=== PATIENT | female | born 1930 | race Caucasian/White ===

== ENCOUNTER 2017-03-08 21:20 | Emergency (ER) | payer MEDICARE, OTHER ==
[~2017-03-08] VITALS: Ht 157.5 cm; Wt 46.7 kg
[~2017-03-08 21:20] MED LIST: ADVAIR 250-501 EACH INH; ALENDRONATE SOD70 MG PO; ALLOPURINOL100 MG PO; ASCORBIC ACID250 MG PO; ASPIRIN EC325 MG PO; ASPIRIN EC81 MG PO; ATENOLOL25 MG; ATENOLOL50 MG PO; ATORVASTATIN CA20 MG PO; C-10001000 MG PO; CARVEDILOL3.125 MG PO; CITALOPRAM HBR10 MG PO; COUMADIN3 MG PO; DEMADEX10 MG PO; DEMADEX20 MG PO; DIGOXIN125 MCG PO; DILTIAZEM 24HR180 MG PO; DILTIAZEM 24HR240 MG PO; DILTIAZEM 24HR360 MG PO; DILTIAZEM ER420 M1 PO; DILTIAZEM ER420 MG PO; DISALCID500 MG PO; ELIQUIS2.5 MG PO; FIBER CHOICE C1.5 GM PO; FISH OIL500 MG PO; GLUCOS-CHOND 51 EACH PO; IMODIUM A-D2 MG PO; KEFLEX500 MG PO; KLOR-CON 1010 MEQ PO; LASIX20 MG PO; LASIX40 MG PO; MEDROL4 M1 PO; NORCO 5-325 TA1 EACH PO; PRILOSEC20 MG PO; PROCTOSOL-HC30 GM PR; PROVENTIL HFA6.7 GM INH; PYRIDIUM200 MG PO; SENNA8.6 MG PO; SYNTHROID75 MCG PO; TENORMIN100 MG PO; TIZANIDINE HCL2 M1 PO; TYLENOL325 MG PO; VITAMIN D5000 UNIT PO; ZITHROMAX250 MG PO; ZOCOR20 MG PO
--- OUTSIDE RECORDS SUMMARY | 2017-03-08 23:29 | XMS ---
Demographics + + + | Address | [address] | | | [place] [address] | + + + | Preferred Language | Unknown | + + + | Marital Status | Unknown | + + + | Synagogue Affiliation | Unknown | + + + | Race | Unknown | + + + | Ethnic Group | Unknown | + + + Author + + + | Author | [facility] | + + + | Organization | [facility] | + + + | Address | [address] | | | [place] [address] | + + + | Phone | | + + + Care Team Providers + + + + | Care Insurance Professional Name | Role | Phone | + + + + Unavailable | Unavailable | + + + + PROBLEMS +---------+ + + +--------+ + + | Type | Condition | ICD9-CM | [id number] | Onset | Condition | SNOMED | | | | Code | Code | Dates | Status | Code | +---------+ + + +--------+ + + | Problem | Chronic | | I48.2 | | Active | [id number] | | | atrial | | | | | | | | fibrillati | | | | | | | | on | | | | | | +---------+ + + +--------+ + + | 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 | | | Active | 421171511 | | | hypothyroi | | | | | | | | dism | | | | | | +---------+ + + +--------+ + + | Problem | Chronic | | J44.1 | | Active | 648149006 | | | obstructiv | | | | | | | | e | | | | | | | | pulmonary | | | | | | | | disease | | | | | | | | with | | | | | | | | (acute) | | | | | | | | exacerbati | | | | | | | | on | | | | | | +---------+ + + +--------+ + + | Problem | 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 | | Active | 0615355 | | | emphysema | | | | | | +---------+ + + +--------+ + + | Problem | Gastroesop | K21.9 | | | Active | 284411167 | | | hageal | | | | | | | | reflux | | | | | | | | disease | | | | | | | | without | | | | | | | | esophagiti | | | | | | | | s | | | | | | +---------+ + + +--------+ + + | Problem | Chronic | I50.22 | | | Active | 183726007 | | | systolic | | | | | | | | congestive | | | | | | | | heart | | | | | | | | failure | | | | | | +---------+ + + +--------+ + + | Problem | Osteoporos | | M81.0 | | Active | 62670910 | | | is | | | | | | +---------+ + + +--------+ + + | Problem | Hypertensi | I11.9 | | | Active | 30210732 | | | ve | | | | | | | | arterioscl | | | | | | | | erotic | | | | | | | | cardiovasc | | | | | | | | ular | | | | | | | | disease | | | | | | +---------+ + + +--------+ + + | Problem | CKD | N18.3 | | | Active | 251345984 | | | (chronic | | | | | | | | kidney | | | | | | | | disease), | | | | | | | | stage 3 | | | | | | | | (moderate) | | | | | | +---------+ + + +--------+ + + ALLERGIES Unknown Allergies SOCIAL HISTORY No smoking Hx information available PLAN OF CARE VITAL SIGNS MEDICATIONS Unknown Medications RESULTS No Results PROCEDURES No Known procedures IMMUNIZATIONS No Known Immunizations"
--- OUTSIDE RECORDS SUMMARY | 2017-03-08 23:29 | XMS ---
Demographics + + + | Address | [address] | | | [place] [address] | + + + | Preferred Language | Unknown | + + + | Marital Status | Unknown | + + + | Alevism Affiliation | Unknown | + + + | Race | Unknown | + + + | Ethnic Group | Unknown | + + + Author + + + | Author | [facility] | + + + | Organization | [facility] | + + + | Address | [address] | | | [place] [address] | + + + | Phone | | + + + Care Team Providers + + + + | Care Marine Photographer Name | Role | Phone | + + + + Unavailable | Unavailable | + + + + PROBLEMS +---------+ + + +--------+ + + | Type | Condition | ICD9-CM | [id number] | Onset | Condition | SNOMED | | | | Code | Code | Dates | Status | Code | +---------+ + + +--------+ + + | Problem | Chronic | | I48.2 | | Active | [id number] | | | atrial | | | | | | | | fibrillati | | | | | | | | on | | | | | | +---------+ + + +--------+ + + | 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 | | | Active | 442877756 | | | hypothyroi | | | | | | | | dism | | | | | | +---------+ + + +--------+ + + | Problem | Chronic | | J44.1 | | Active | 244563016 | | | obstructiv | | | [...] | | J43.1 | | Active | 5934175 | | | emphysema | | | | | | +---------+ + + +--------+ + + | Problem | Gastroesop | K21.9 | | | Active | 670487993 | | | hageal | | | [...] | I50.22 | | | Active | 993382812 | | | systolic | | | | | | | | congestive | | | | | | | | heart | | | | | | | | failure | | | | | | +---------+ + + +--------+ + + | Problem | Osteoporos | | M81.0 | | Active | 07159288 | | | is | | | | | | +---------+ + + +--------+ + + | Problem | Hypertensi | I11.9 | | | Active | 70169391 | | | ve | | | [...] | N18.3 | | | Active | 403227374 | | | (chronic | | | [...]
--- OUTSIDE RECORDS SUMMARY | 2017-03-08 23:29 | XMS ---
Demographics + + + | Address | [address] | | | [place] [address] | + + + | Preferred Language | Unknown | + + + | Marital Status | Unknown | + + + | Oriental Orthodox Affiliation | Unknown | + + + | Race | Unknown | + + + | Ethnic Group | Unknown | + + + Author + + + | Author | [facility] | + + + | Organization | [facility] | + + + | Address | [address] | | | [place] [address] | + + + | Phone | | + + + Care Team Providers + + + + | Care Corporate Aircraft Mechanic Name | Role | Phone | + + + + Unavailable | Unavailable | + + + + PROBLEMS +---------+ + + +--------+ + + | Type | Condition | ICD9-CM | [id number] | Onset | Condition | SNOMED | | | | Code | Code | Dates | Status | Code | +---------+ + + +--------+ + + | Problem | Chronic | | I48.2 | | Active | [id number] | | | atrial | | | | | | | | fibrillati | | | | | | | | on | | | | | | +---------+ + + +--------+ + + | 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 | | | Active | 578599020 | | | hypothyroi | | | | | | | | dism | | | | | | +---------+ + + +--------+ + + | Problem | Chronic | | J44.1 | | Active | 249279229 | | | obstructiv | | | [...] | | J43.1 | | Active | 0350792 | | | emphysema | | | | | | +---------+ + + +--------+ + + | Problem | Gastroesop | K21.9 | | | Active | 796523902 | | | hageal | | | [...] | I50.22 | | | Active | 162280434 | | | systolic | | | | | | | | congestive | | | | | | | | heart | | | | | | | | failure | | | | | | +---------+ + + +--------+ + + | Problem | Osteoporos | | M81.0 | | Active | 65860059 | | | is | | | | | | +---------+ + + +--------+ + + | Problem | Hypertensi | I11.9 | | | Active | 00461953 | | | ve | | | [...] | N18.3 | | | Active | 339183130 | | | (chronic | | | [...]
--- OUTSIDE RECORDS SUMMARY | 2017-03-08 23:29 | XMS ---
Demographics + + + | Address | [address] | | | [place] [address] | + + + | Preferred Language | Unknown | + + + | Marital Status | Unknown | + + + | Faith Affiliation | Unknown | + + + | Race | Unknown | + + + | Ethnic Group | Unknown | + + + Author + + + | Author | [facility] | + + + | Organization | [facility] | + + + | Address | [address] | | | [place] [address] | + + + | Phone | | + + + Care Team Providers + + + + | Care Street Commissioner Name | Role | Phone | + + + + Unavailable | Unavailable | + + + + PROBLEMS +---------+ + + +--------+ + + | Type | Condition | ICD9-CM | [id number] | Onset | Condition | SNOMED | | | | Code | Code | Dates | Status | Code | +---------+ + + +--------+ + + | Problem | Chronic | | I48.2 | | Active | 828032783 | | | atrial | | | | | | | | fibrillati | | | | | | | | on | | | | | | +---------+ + + +--------+ + + | 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 | | | Active | 077238717 | | | hypothyroi | | | | | | | | dism | | | | | | +---------+ + + +--------+ + + | Problem | Chronic | | J44.1 | | Active | 916652281 | | | obstructiv | | | [...] | | J43.1 | | Active | 6140337 | | | emphysema | | | | | | +---------+ + + +--------+ + + | Problem | Gastroesop | K21.9 | | | Active | 466501345 | | | hageal | | | [...] | I50.22 | | | Active | 284925044 | | | systolic | | | | | | | | congestive | | | | | | | | heart | | | | | | | | failure | | | | | | +---------+ + + +--------+ + + | Problem | Osteoporos | | M81.0 | | Active | 90253997 | | | is | | | | | | +---------+ + + +--------+ + + | Problem | Hypertensi | I11.9 | | | Active | 78189078 | | | ve | | | [...] | N18.3 | | | Active | 945783780 | | | (chronic | | | [...]
--- OUTSIDE RECORDS SUMMARY | 2017-03-08 23:29 | XMS ---
Demographics + + + | Address | [address] | | | [place] [address] | + + + | Preferred Language | Unknown | + + + | Marital Status | Unknown | + + + | Episcopal Affiliation | Unknown | + + + | Race | Unknown | + + + | Ethnic Group | Unknown | + + + Author + + + | Author | [facility] | + + + | Organization | [facility] | + + + | Address | [address] | | | [place] [address] | + + + | Phone | | + + + Care Team Providers + + + + | Care Last Putter Away Name | Role | Phone | + + + + Unavailable | Unavailable | + + + + PROBLEMS + + + + + + + + | Type | Condition | ICD9-CM | [id number] | Onset | Condition | SNOMED | | | | Code | Code | Dates | Status | Code | + + + + + + + + | Problem | Chronic | | I48.2 | | Active | 049223752 | | | atrial | | | | | | | | fibrillati | | | | | | | | on | | | | | | + + + + + + + + | 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 | | | Active | 758051986 | | | hypothyroi | | | | | | | | dism | | | | | | + + + + + + + + | Problem | Chronic | | J44.1 | | Active | 076194136 | | | obstructiv | | | [...] on | | | | | | + + + + + + + + | Assessment | COPD | | J44.1 | 28 December, | Active | 547175272 | | | exacerbati | | | 2016 | | | | | on | | | | | | + + + + + + + + | Problem | 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 | | Active | 2646593 | | | emphysema | | | | | | + + + + + + + + | Problem | Gastroesop | K21.9 | | | Active | 472548364 | | | hageal | | | | | | | | reflux | | | | | | | | disease | | | | | | | | without | | | | | | | | esophagiti | | | | | | | | s | | | | | | + + + + + + + + | Problem | Chronic | I50.22 | | | Active | 391630175 | | | systolic | | | | | | | | congestive | | | | | | | | heart | | | | | | | | failure | | | | | | + + + + + + + + | Problem | Osteoporos | | M81.0 | | Active | 92212420 | | | is | | | | | | + + + + + + + + | Problem | Hypertensi | I11.9 | | | Active | 31907288 | | | ve | | | | | | | | arterioscl | | | | | | | | erotic | | | | | | | | cardiovasc | | | | | | | | ular | | | | | | | | disease | | | | | | + + + + + + + + | Problem | CKD | N18.3 | | | Active | 237317325 | | | (chronic | | | | | | | | kidney | | | | | | | | disease), | | | | | | | | stage 3 | | | | | | | | (moderate) | | | | | | + + + + + + + + ALLERGIES + + + + +--------+ | Substance | Reaction | Event Type | Date | Status | + + + + +--------+ | Spiriva | dry mouth | Drug Allergy | December, | Active | | HandiHaler | | | | | + + + + +--------+ SOCIAL HISTORY No smoking Hx information available PLAN OF CARE + +---------+ | Activity | Details | + +---------+ +---+ | | +---+ + + + | Future/Pending Procedure | Nebulizer | + + + | | 1 Week,Reason: | + + + VITAL SIGNS + + + + | Height | 62 in | 2016-12-28 | + + + + | Weight | 105.4 lbs | 2016-12-28 | + + + + | BMI | 19.28 kg/m2 | 2016-12-28 | + + + + | Temperature | 97.7 degrees Fahrenheit | 2016-12-28 | + + + + | Heart Rate | 86 /min | 2016-12-28 | + + + + | Blood pressure systolic | 152 mm Hg | 2016-12-28 | + + + + | Blood pressure diastolic | 65 mm Hg | 2016-12-28 | + + + + MEDICATIONS + + + + + + + +--------+ | Medicati | Instruct | Dosage | Frequenc | Start | End Date | Duration | Status | | on | ions | | y | Date | | | | + + + + + + + +--------+ | Azithrom | Orally | 2 | 24h | | | | Active | | ycin 250 | Once a | tablets | | | | | | | MG | day | on the | | | | | | | | | first | | | | | | | | | day, | | | | | | | | | then 1 | | | | | | | | | tablet | | | | | | | | | daily | | | | | | | | | for 4 | | | | | | | | | days | | | | | | + + + + + + + +--------+ | PreserVi | | | | | | | Active | | reggie | | | | | | | | | AREDS 2 | | | | | | | | + + + + + + + +--------+ | Ipratrop | Inhalati | 3 ml | 4h | 08 December, | | 14 days | Active | | ium-Albu | on every | | | 2016 | | | | | terol | 4 hrs | | | | | | | | 0.5-2.5 | | | | | | | | | (3) | | | | | | | | | MG/3ML | | | | | | | | + + + + + + + +--------+ | Carvedil | Orally | 1 tablet | 12h | | | 30 | Active | | ol | Twice a | with | | | | | | | 3.125MG | day | food | | | | | | + + + + + + + +--------+ | Furosemi | Orally | 2 | 24h | | | | Active | | de 20 MG | Once a | tablets | | | | | | | | day | | | | | | | + + + + + + + +--------+ | Nebulize | topicall | as | | 08 December, | | 30 days | Active | | r - | y daily | directed | | 2016 | | | | | | Dx COPD | | | | | | | + + + + + + + +--------+ | Vitamin | Orally | 1 | 24h | | | | Active | | D3 1000 | Once a | capsule | | | | | | | UNIT | day | | | | | | | + + + + + + + +--------+ | Furosemi | Orally | 1 tablet | 12h | | | 30 days | Active | | de 40 MG | Twice a | | | | | | | | | day | | | | | | | + + + + + + + +--------+ | Potassiu | Orally | 1 | 12h | | | 30 | Active | | m | Twice a | capsule | | | | day(s) | | | Chloride | day | | | | | | | | ER 10 | | | | | | | | | MEQ | | | | | | | | + + + + + + + +--------+ | Diltiaze | PO Daily | 1 | 24h | | | | Active | | m CD 240 | | Capsule | | | | | | | MG | | | | | | | | + + + + + + + +--------+ | MethylPR | | | | | | | Active | | EDNISolo | | | | | | | | | ne 4 MG | | | | | | | | + + + + + + + +--------+ | Omeprazo | Orally | 1 | 12h | | | | Active | | le 20 mg | bid | capsule | | | | | | + + + + + + + +--------+ | Aspirin | Orally | 1 tablet | 24h | | | | Active | | Adult | Once a | | | | | | | | Low | day | | | | | | | | Strength | | | | | | | | | 81 MG | | | | | | | | + + + + + + + +--------+ | Ventolin | Inhalati | 2 puffs | 4h | | | | Active | | HFA 108 | on every | as | | | | | | | (90 | 4 hrs | needed | | | | | | | Base) | | | | | | | | | MCG/ACT | | | | | | | | + + + + + + + +--------+ | Levothyr | Orally | 1 tablet | 24h | | | 30 | Active | | oxine | Once a | every | | | | | | | Sodium | day | morning | | | | | | | 75MCG | | on an | | | | | | | | | empty | | | | | | | | | stomach | | | | | | + + + + + + + +--------+ | Advair | Inhalati | 1 puff | 12h | | | | Active | | Diskus | on Twice | | | | | | | | 250-50 | a day | | | | | | | | MCG/DOSE | | | | | | | | + + + + + + + +--------+ | Doxycycl | Orally | 1 | 12h | 08 December, | 18 December, | 10 days | Active | | ine | every 12 | capsule | | 2016 | 2016 | | | | Monohydr | hrs | | | | | | | | ate 100 | | | | | | | | | MG | | | | | | | | + + + + + + + +--------+ | Digoxin | Orally | 1 tablet | | | | 60 | Active | | 0.125MG | Every | | | | | | | | | other | | | | | | | | | day | | | | | | | + + + + + + + +--------+ | Vitamin | Orally | 1 tablet | 24h | 11 Bao, | | | Active | | C 1000 | Once a | | | 2014 | | | | | MG | day | | | | | | | + + + + + + + +--------+ | Alendron | Orally | 1 tablet | | | | 28 | Active | | ate | Once a | | | | | | | | Sodium | Week | | | | | | | | 70MG | | | | | | | | + + + + + + + +--------+ RESULTS No Results PROCEDURES + + + + + | Procedure | Date Ordered | Related Diagnosis | Body Site | + + + + + | NEBULIZER | December 28, 2016 | | | | TREATMENT, AEROSOL | | | | + + + + + | Office Visit, Est | December 28, 2016 | | | | Pt., Level 3 | | | | + + + + + IMMUNIZATIONS No Known Immunizations"
--- OUTSIDE RECORDS SUMMARY | 2017-03-08 23:30 | XMS ---
Demographics + + + | Address | [address] | | | [place] [address] | + + + | Preferred Language | Unknown | + + + | Marital Status | Unknown | + + + | Worship Affiliation | Unknown | + + + | Race | Unknown | + + + | Ethnic Group | Unknown | + + + Author + + + | Author | [facility] | + + + | Organization | [facility] | + + + | Address | [address] | | | [place] [address] | + + + | Phone | | + + + Care Team Providers + + + + | Care Central Melt Specialist Name | Role | Phone | + + + + Unavailable | Unavailable | + + + + PROBLEMS + + + + + + + + | Type | Condition | ICD9-CM | VHF57-[id number] | Onset | Condition | SNOMED | | | | Code | Code | Dates | Status | Code | + + + + + + + + | Problem | Chronic | | I48.2 | | Active | 449208454 | | | atrial | | | | | | | | fibrillati | | | | | | | | on | | | | | | + + + + + + + + | 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 | | | Active | 488652669 | | | hypothyroi | | | | | | | | dism | | | | | | + + + + + + + + | Problem | Chronic | | J44.1 | | Active | 468664108 | | | obstructiv | | | [...] Assessment | COPD | | J44.1 | 16 December, | Active | 730239285 | | | exacerbati | | | 2016 | | | | | on | | | | | | + + + + + + + + | Problem | 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 | | Active | 5497962 | | | emphysema | | | | | | + + + + + + + + | Problem | Gastroesop | K21.9 | | | Active | 251691619 | | | hageal | | | [...] | I50.22 | | | Active | 344611618 | | | systolic | | | | | | | | congestive | | | | | | | | heart | | | | | | | | failure | | | | | | + + + + + + + + | Problem | Osteoporos | | M81.0 | | Active | 32344512 | | | is | | | | | | + + + + + + + + | Problem | Hypertensi | I11.9 | | | Active | 78631069 | | | ve | | | [...] | N18.3 | | | Active | 581222116 | | | (chronic | | | [...] Nebulizer | + + + | | prn,Reason: | + + + VITAL SIGNS + + + + | Height | 62 in | 2017-01-05 | + + + + | Weight | 103.3 lbs | 2017-01-05 | + + + + | BMI | 18.89 kg/m2 | 2017-01-05 | + + + + | Temperature | 97.9 degrees Fahrenheit | 2017-01-05 | + + + + | Heart Rate | 91 /min | 2017-01-05 | + + + + | Blood pressure systolic | 139 mm Hg | 2017-01-05 | + + + + | Blood pressure diastolic | 58 mm Hg | 2017-01-05 | + + + + MEDICATIONS + [...] 1000 | Once a | | | 2015 | | | | | MG | [...] Inhalati | 3 ml | 4h | | | 14 days | Active | | ium-Albu | on every | | | | | | | | terol | [...] Nebulize | topicall | as | | | | 30 days | Active | | r - | y daily | directed | | | | | | | | Dx [...] | 1 | 12h | | | 10 days | Active | | ine | every 12 | capsule | | | | | | | Monohydr | hrs [...] + + | Office Visit, Est | January 05, 2017 | | | | Pt., Level 3 | | | | + + + + + IMMUNIZATIONS No Known Immunizations"
[2017-03-09] MEDS ORDERED: PROTONIX40 MG PO (00:49)
--- NOTE | 2017-03-09 07:50 | EKG ---
[facility] [address] [facility] [place] [address] Signed Atrial fibrillation Anterolateral infarct , age undetermined Abnormal ECG When compared with ECG of 25-DEC-2016 08:52, ST no longer depressed in Anterior leads Confirmed by JOSEFINA MARK MD ([id number]) on 03/09/2017 7:50:49 AM Electronically Signed By: JOSEFINA MARK MD 03/09/17 0750 PATIENT NAME: TABATHA HU Electrocardiogram DATE OF : [birth year] PHYSICIAN: JOSEFINA MARK MD REPORT #: [id number] REPORT IS CONFIDENTIAL AND NOT TO BE RELEASED WITHOUT AUTHORIZATION
== END 2017-03-09 01:31 | disposition home or self-care (01) ==
LOC: ED 21:20
DX: K29.70 Gastritis, unspecified, without bleeding (principal); R07.89 Other chest pain; I25.2 Old myocardial infarction; I48.91 Unspecified atrial fibrillation; I11.0 Hypertensive heart disease with heart failure; I50.9 Heart failure, unspecified; Z87.891 Personal history of nicotine dependence; J44.9 Chronic obstructive pulmonary disease, unspecified; Z90.710 Acquired absence of both cervix and uterus; Z95.0 Presence of cardiac pacemaker; Z79.899 Other long term (current) drug therapy; Z79.82 Long term (current) use of aspirin; Z79.51 Long term (current) use of inhaled steroids
CPT/HCPCS: 36415; 71020; 80053; 80162; 84484; 85025; 93005; 93010; 99284

== ENCOUNTER 2017-08-24 06:11 | Inpatient (IN) | payer MEDICARE, OTHER ==
[~2017-08-24] VITALS: Ht 157.5 cm; Wt 46.6 kg
--- OUTSIDE RECORDS SUMMARY | ~2017-08-24 | XMS ---
Demographics + + + | Address | [address] | | | [place] [address] | + + + | Preferred Language | Unknown | + + + | Marital Status | Unknown | + + + | Hinduism Affiliation | Unknown | + + + | Race | Unknown | + + + | Ethnic Group | Unknown | + + + Author + + + | Author | [facility] | + + + | Organization | [facility] | + + + | Address | [address] | | | [place] [address] | + + + | Phone | | + + + Care Team Providers + + + + | Care Gelatin Powder Mixer Name | Role | Phone | + + + + Unavailable | Unavailable | + + + + PROBLEMS +---------+ + + +--------+ + + | Type | Condition | ICD9-CM | [id number] | Onset | Condition | SNOMED | | | | Code | Code | Dates | Status | Code | +---------+ + + +--------+ + + | Problem | Chronic | | I48.2 | | Active | 082609445 | | | atrial | | | | | | | | fibrillati | | | | | | | | on | | | | | | +---------+ + + +--------+ + + | 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 | | | Active | 173197201 | | | hypothyroi | | | | | | | | dism | | | | | | +---------+ + + +--------+ + + | Problem | Chronic | | J44.1 | | Active | 438771699 | | | obstructiv | | | [...] | | J43.1 | | Active | 8549932 | | | emphysema | | | | | | +---------+ + + +--------+ + + | Problem | Gastroesop | K21.9 | | | Active | 506967395 | | | hageal | | | [...] | I50.22 | | | Active | 600607791 | | | systolic | | | | | | | | congestive | | | | | | | | heart | | | | | | | | failure | | | | | | +---------+ + + +--------+ + + | Problem | Osteoporos | | M81.0 | | Active | 80901104 | | | is | | | | | | +---------+ + + +--------+ + + | Problem | Hypertensi | I11.9 | | | Active | 20931206 | | | ve | | | [...] | N18.3 | | | Active | 422804323 | | | (chronic | | | | | | | | kidney | | | | | | | | disease), | | | | | | | | stage 3 | | | | | | | | (moderate) | | | | | | +---------+ + + +--------+ + + ALLERGIES + + + + +--------+ | Substance | Reaction | Event Type | Date | Status | + + + + +--------+ | Spiriva | dry mouth | Drug Allergy | Mar, | Active | | HandiHaler | | | | | + + + + +--------+ SOCIAL HISTORY No smoking Hx information available PLAN OF CARE + +---------+ | Activity | Details | + +---------+ +---+ | | +---+ + + + | Follow Up | prn Reason:null | + + + VITAL SIGNS + + + + | Height | 62 in | 2017-04-19 | + + + + | Weight | 104.2 lbs | 2017-04-19 | + + + + | BMI | 19.06 kg/m2 | 2017-04-19 | + + + + | Heart Rate | 72 /min | 2017-04-19 | + + + + | Blood pressure systolic | 143 mm Hg | 2017-04-19 | + + + + | Blood pressure diastolic | 59 mm Hg | 2017-04-19 | + + + + MEDICATIONS + + + + + + + +--------+ | Medicati | Instruct | Dosage | Frequenc | Start | End Date | Duration | Status | | on | ions | | y | Date | | | | + + + + + + + +--------+ | Triamcin | External | 1 | 12h | 28 Mar, | | 30 days | Active | | olone | ly Twice | applicat | | 2016 | | | | | Acetonid | a day | ion to | | | | | | | e 0.1 % | | affected | | | | | | | | | area | | | | | | + + + + + + + +--------+ | Omeprazo | Orally | 1 | 12h | | | | Active | | le 20 MG | bid | capsule | | | | | | + + + + + + + +--------+ | Furosemi | Orally | 1 tablet | 24h | | | | Active | | de 40 MG | Once a | | | | | | | | | day | | | | | | | + + + + + + + +--------+ | Potassiu | | TAKE ONE | | | | | Active | | m | | CAPSULE | | | | | | | Chloride | | BY | | | | | | | ER | | MOUTH | | | | | | | 10MEQ ER | | TWICE | | | | | | | | | DAILY | | | | | | + + + + + + + +--------+ | Alendron | Orally | 1 tablet | | | | | Active | | ate | Once [...] + + + + + +--------+ | Cartia | | TAKE ONE | | | | | Active | | XT | | CAPSULE | | | | | | | 240/24HR | | BY | | | | | | | | | MOUTH | | | | | | | | | ONCE | | | | | | | | | DAILY | | | | | | + + + + + + + +--------+ | Anusol-H | Rectal | 1 | 12h | 28 Mar, | 27 Oct, | 30 | Active | | C 2.5 % | Twice a | applicat | | 2017 | 2017 | day(s) | | | | day | ion to | | | | | | | | | affected | | | | | | | | | area | | | | | | + + + + + + + +--------+ | Digoxin | Orally | 1 tablet | | | | | Active | | 0.125MG | Every [...] + + + + + +--------+ | Apixaban | Orally | 1 tablet | | | | | Active | | 2.5 MG | twice | | | | | | | [...] | | | | | | | 250/50 | a day | | | | | | | + + + + + + + +--------+ | Anti-Agueda | Orally 8 | 1 tablet | | | | | Active | | rrheal 2 | time(s) | | | | | | | | MG | a day | | | | | | | + + + + + + + +--------+ RESULTS No Results PROCEDURES + + + + + | Procedure | Date Ordered | Related Diagnosis | Body Site | + + + + + | Office Visit, Est | Apr 19, 2017 | | | | Pt., Level 3 | | | | + + + + + IMMUNIZATIONS No Known Immunizations"
--- OUTSIDE RECORDS SUMMARY | ~2017-08-24 | XMS ---
Demographics + + + | Address | [address] | | | [place] [address] | + + + | Preferred Language | Unknown | + + + | Marital Status | Unknown | + + + | Yazidism Affiliation | Unknown | + + + | Race | Unknown | + + + | Ethnic Group | Unknown | + + + Author + + + | Author | [facility] | + + + | Organization | [facility] | + + + | Address | [address] | | | [place] [address] | + + + | Phone | | + + + Care Team Providers + + + + | Care District Manager Major Accounts Sales Name | Role | Phone | + + + + Unavailable | Unavailable | + + + + PROBLEMS +---------+ + + +--------+ + + | Type | Condition | ICD9-CM | [id number] | Onset | Condition | SNOMED | | | | Code | Code | Dates | Status | Code | +---------+ + + +--------+ + + | Problem | Chronic | | I48.2 | | Active | [id number] | | | atrial | | | | | | | | fibrillati | | | | | | | | on | | | | | | +---------+ + + +--------+ + + | 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 | | | Active | [id number] | | | hypothyroi | | | | | | | | dism | | | | | | +---------+ + + +--------+ + + | Problem | Chronic | | J44.1 | | Active | 928647982 | | | obstructiv | | | [...] | | J43.1 | | Active | 4712403 | | | emphysema | | | | | | +---------+ + + +--------+ + + | Problem | Gastroesop | K21.9 | | | Active | 964184809 | | | hageal | | | [...] | I50.22 | | | Active | 540973767 | | | systolic | | | | | | | | congestive | | | | | | | | heart | | | | | | | | failure | | | | | | +---------+ + + +--------+ + + | Problem | Osteoporos | | M81.0 | | Active | 60844972 | | | is | | | | | | +---------+ + + +--------+ + + | Problem | Hypertensi | I11.9 | | | Active | 15969440 | | | ve | | | [...] | N18.3 | | | Active | [id number] | | | (chronic | | | [...]
--- OUTSIDE RECORDS SUMMARY | ~2017-08-24 | XMS ---
Demographics + + + | Address | [address] | | | [place] [address] | + + + | Preferred Language | Unknown | + + + | Marital Status | Unknown | + + + | Scientology Affiliation | Unknown | + + + | Race | Unknown | + + + | Ethnic Group | Unknown | + + + Author + + + | Author | [facility] | + + + | Organization | [facility] | + + + | Address | [address] | | | [place] [address] | + + + | Phone | | + + + Care Team Providers + + + + | Care Music Journalist Name | Role | Phone | + + + + Unavailable | Unavailable | + + + + PROBLEMS +---------+ + + +--------+ + + | Type | Condition | ICD9-CM | [id number] | Onset | Condition | SNOMED | | | | Code | Code | Dates | Status | Code | +---------+ + + +--------+ + + | Problem | Chronic | | I48.2 | | Active | [id number] | | | atrial | | | | | | | | fibrillati | | | | | | | | on | | | | | | +---------+ + + +--------+ + + | 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 | | | Active | 291759425 | | | hypothyroi | | | | | | | | dism | | | | | | +---------+ + + +--------+ + + | Problem | Chronic | | J44.1 | | Active | 985555497 | | | obstructiv | | | [...] | | J43.1 | | Active | 2602165 | | | emphysema | | | | | | +---------+ + + +--------+ + + | Problem | Gastroesop | K21.9 | | | Active | 477303296 | | | hageal | | | [...] | I50.22 | | | Active | 247757171 | | | systolic | | | | | | | | congestive | | | | | | | | heart | | | | | | | | failure | | | | | | +---------+ + + +--------+ + + | Problem | Osteoporos | | M81.0 | | Active | 28527350 | | | is | | | | | | +---------+ + + +--------+ + + | Problem | Hypertensi | I11.9 | | | Active | 21617487 | | | ve | | | [...] | N18.3 | | | Active | 738193419 | | | (chronic | | | [...] | dry mouth | Drug Allergy | Feb, | Active | | HandiHaler | | | | | + + + + +--------+ SOCIAL HISTORY No smoking Hx information available PLAN OF CARE + +---------+ | Activity | Details | + +---------+ +---+ | | +---+ + + + | Follow Up | 4 Months Reason:null | + + + VITAL SIGNS + + + + | Height | 62 in | 2017-03-11 | + + + + | Weight | 102.7 lbs | 2017-03-11 | + + + + | BMI | 18.78 kg/m2 | 2017-03-11 | + + + + | Heart Rate | 68 /min | 2017-03-11 | + + + + | Blood pressure systolic | 152 mm Hg | 2017-03-11 | + + + + | Blood pressure diastolic | 71 mm Hg | 2017-03-11 | + + + + MEDICATIONS + [...] Ventolin | Inhalati | 2 puffs | 6h | | | 30 days | Active | | HFA 108 | on every | as | | | | | | | (90 | 6 hrs | needed | | | | [...] + + | Office Visit, Est | March 11, 2017 | | | | Pt., Level 4 | | | | + + + + + IMMUNIZATIONS No Known Immunizations"
--- OUTSIDE RECORDS SUMMARY | ~2017-08-24 | XMS | Clinical Summary ---
Demographics + + + | Address | [address] | | | [place] [address] | + + + | Home Phone | | + + + | Preferred Language | Unknown | + + + | Marital Status | | + + + | Jehovah'S Witness Affiliation | Unknown | + + + | Race | White | + + + | Ethnic Group | Not or | + + + Author + + + | Organization | Unknown | + + + | Address | Unknown | + + + | Phone | Unavailable | + + + Care Team Providers + +------+ + | Care Temporary Receptionist Name | Role | Phone | + +------+ + PP | Unavailable | + +------+ + Source Comments MANUEL is fully live on both [facility] and [facility] Allergies Not on File Current Medications Not [...]
--- OUTSIDE RECORDS SUMMARY | ~2017-08-24 | XMS ---
Demographics + + + | Address | [address] | | | [place] [address] | + + + | Preferred Language | Unknown | + + + | Marital Status | Unknown | + + + | Methodist Affiliation | Unknown | + + + | Race | Unknown | + + + | Ethnic Group | Unknown | + + + Author + + + | Author | [facility] | + + + | Organization | [facility] | + + + | Address | [address] | | | [place] [address] | + + + | Phone | | + + + Care Team Providers + + + + | Care Cotton Machine Operator Name | Role | Phone | + + + + Unavailable | Unavailable | + + + + PROBLEMS +---------+ + + +--------+ + + | Type | Condition | ICD9-CM | [id number] | Onset | Condition | SNOMED | | | | Code | Code | Dates | Status | Code | +---------+ + + +--------+ + + | Problem | Chronic | | I48.2 | | Active | [id number] | | | atrial | | | | | | | | fibrillati | | | | | | | | on | | | | | | +---------+ + + +--------+ + + | 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 | | | Active | [id number] | | | hypothyroi | | | | | | | | dism | | | | | | +---------+ + + +--------+ + + | Problem | Chronic | | J44.1 | | Active | 993505532 | | | obstructiv | | | [...] | | J43.1 | | Active | 2431361 | | | emphysema | | | | | | +---------+ + + +--------+ + + | Problem | Gastroesop | K21.9 | | | Active | 796195389 | | | hageal | | | [...] | I50.22 | | | Active | 657552196 | | | systolic | | | | | | | | congestive | | | | | | | | heart | | | | | | | | failure | | | | | | +---------+ + + +--------+ + + | Problem | Osteoporos | | M81.0 | | Active | 81363954 | | | is | | | | | | +---------+ + + +--------+ + + | Problem | Hypertensi | I11.9 | | | Active | 38721574 | | | ve | | | [...] | N18.3 | | | Active | [phone] | | | (chronic | | | [...]
[~2017-08-24 06:11] MED LIST changes: +PROTONIX40 MG PO
--- NOTE | 2017-08-24 06:40 | EKG ---
[facility] [address] [facility] [place], [place] [address] Signed Atrial fibrillation Nonspecific ST abnormality Abnormal ECG When compared with ECG of 08-MAR-2017 21:25, No significant change was found Confirmed by JOSEFINA MARK MD ([id number]) on 08/24/2017 6:40:25 AM Electronically Signed By: JOSEFINA MARK MD 08/24/17 0640 PATIENT NAME: TABATHA HU Amarjit Electrocardiogram DATE OF : [birth year] PHYSICIAN: JOSEFINA MARK MD REPORT #: [id number] REPORT IS CONFIDENTIAL AND NOT TO BE RELEASED WITHOUT AUTHORIZATION
[2017-08-24] MEDS ORDERED: VITAMIN D1000 UNIT PO (17:43)
[2017-08-24] MEDS ORDERED: VITAMIN C1000 MG PO (17:43)
[2017-08-24] MEDS ORDERED: VENTOLIN HFA18 GM INH (17:45)
[2017-08-24] MEDS ORDERED: PREVACID 24HR15 MG PO (17:57)
[2017-08-24] MEDS ORDERED: ATROVENT HFA12.9 GM INH (17:58)
[2017-08-24] MEDS ORDERED: IMODIUM A-D2 M2 PO (17:58)
== END 2017-09-04 11:24 | disposition swing bed (61) | DRG 291 ==
LOC: ED 06:11 → MS 08:32
PROVIDERS: ADMIT Internal Medicine
PROC: 5A09357 Assistance with Respiratory Ventilation, Less than 24 Consecutive Hours, Continuous Positive Airway Pressure (ICD-10-PCS; principal; 2017-08-27)
DX: I50.33 Acute on chronic diastolic (congestive) heart failure (principal); J96.21 Acute and chronic respiratory failure with hypoxia; J96.22 Acute and chronic respiratory failure with hypercapnia; I34.0 Nonrheumatic mitral (valve) insufficiency; I35.1 Nonrheumatic aortic (valve) insufficiency; I27.20 Pulmonary hypertension, unspecified; M79.81 Nontraumatic hematoma of soft tissue; M62.81 Muscle weakness (generalized); N18.9 Chronic kidney disease, unspecified; J44.9 Chronic obstructive pulmonary disease, unspecified; I25.10 Atherosclerotic heart disease of native coronary artery without angina pectoris; I48.2 Chronic atrial fibrillation; D50.0 Iron deficiency anemia secondary to blood loss (chronic); R41.82 Altered mental status, unspecified; T40.2X5A Adverse effect of other opioids, initial encounter; Y92.239 Unspecified place in hospital as the place of occurrence of the external cause; Z79.02 Long term (current) use of antithrombotics/antiplatelets; Z79.82 Long term (current) use of aspirin; Z79.83 Long term (current) use of bisphosphonates; Z99.81 Dependence on supplemental oxygen; Z79.51 Long term (current) use of inhaled steroids; Z79.899 Other long term (current) drug therapy; Z87.891 Personal history of nicotine dependence; Z95.0 Presence of cardiac pacemaker
CPT/HCPCS: 36415; 36600; 71045; 71046; 71260; 73502; 74176; 80048; 80053; 80069; 80162; 81001; 82803; 83605; 83735; 83880; 84100; 84484; 85007; 85014; 85018; 85025; 85032; 85049; 87040; 87077; 87088; 87186; 87502; 93005; 93010; 93306; 94640; 94660; 94760; 94762; 97110; 97116; 97162; J0456; J0696; J2270; J2405; J3475; J7030; J7040; Q9967

== ENCOUNTER 2017-09-04 11:24 | Inpatient (IN) | payer MEDICARE, OTHER ==
[~2017-09-04] VITALS: Ht 157.5 cm; Wt 47.2 kg
--- OUTSIDE RECORDS SUMMARY | ~2017-09-04 | XMS | Clinical Summary ---
Demographics + + + | Address | [address] | | | [place] [address] | + + + | Home Phone | | + + + | Preferred Language | Unknown | + + + | Marital Status | | + + + | Pentecostalism Affiliation | Unknown | + + + | Race | White | + + + | Ethnic Group | Not or | + + + Author + + + | Organization | Unknown | + + + | Address | Unknown | + + + | Phone | Unavailable | + + + Care Team Providers + +------+ + | Care Intelligence Manager Name | Role | Phone | + +------+ + PP | Unavailable | + +------+ + Source Comments MANUEL is fully live on both [facility] and [facility] InPatient.[facility] Allergies Not on File Current Medications Not on file Active Problems Not on file Social History + +-------+ +--------+------+ | Tobacco Use | Types | Packs/Day | Years | Date | | | | | Used | | + +-------+ +--------+------+ | Never Assessed | | | | | + +-------+ +--------+------+ + + + | Sex Assigned at | Date Recorded | | | | + + + | Not on file | | + + + Plan of Treatment + + + + + | Health Maintenance | Due Date | Last Done | Comments | + + + + + | INFLUENZA VACCINE | | | | | (FLU SHOT) | 7 | | | + + + + + Results Not on filefrom Last 3 Months"
[~2017-09-04 11:24] MED LIST changes: +ATROVENT HFA12.9 GM INH; +IMODIUM A-D2 M2 PO; +PREVACID 24HR15 MG PO; +VENTOLIN HFA18 GM INH; +VITAMIN C1000 MG PO; +VITAMIN D1000 UNIT PO
--- NOTE | 2017-09-04 13:47 | NUR ---
PATIENT TRANSITIONED TO SWING BED TODAY. RESTING WELL. WORKED WITH PHYSICAL THERAPY TRANSFERING FROM RECLINER TO BED WITH FWW 1PERSON ASSIST.
--- NOTE | 2017-09-04 14:23 | NUR ---
PT WAS SHORT OF PATIENCE WITH ME WHEN I ANSWERED HER CALL LIGHT SHE NEEDED ASSISTANCE OFF THE COMMODE I DID MY BEST TO ADHERE TO WHAT SHE WANTED, SHE GOT BACK INTO BED AND I OFFERED HER A FRESH BEVERAGE AND SHE SAID SHE WOULD LIKE TO STICK TO THE WATER SHE HAD. I TOLD HER TO CALL IF SHE NEEDED ANYTHING ELSE.
--- NOTE | 2017-09-04 14:50 | NUR ---
BLADDER SCANNED PATIENT 750 MLS NOTED. PATIENT UP TO BSC, VOIDED 250, WITH A PVR 490. ENCOURAGED PATIENT TO DRINK MORE AND BE MORE AWAKE. REPORTED FINDINGS TO DR. COLON. NO NEW ORDERS, CONTINUE TO ENCOURAGE FLUID INTAKE AND LET PATIENT REST.
--- NOTE | 2017-09-04 14:52 | NUR ---
PT DIDNT EAT ANY FOOD BUT SHE DRANK A 237CC SUPPLEMENT SHAKE.
--- NOTE | 2017-09-04 16:51 | NUR ---
STOCKED ROOM FRESH ICE WATER.
--- NOTE | 2017-09-04 18:29 | NUR ---
PATIENT MORE ACTIVE TODAY, PAIN BETTER CONTROLLED WITH TYLENOL/ CODEINE. PATIENT APPETITE INCREASED. HEATHER MURPHY'Carmen TODAY, VOIDED. PATIENT TRANSITIONED TO SWING BED. HAD DINNER WITH PATIENT THIS EVENING, PATIENT ATE WELL 80% OF DINNER. ENCOURAGING FLUID INTAKE. STARTED ON PO TORSEMIDE.
--- NOTE | 2017-09-04 19:05 | NUR ---
SHIFT REPORT RECIEVED. PATIENT IN BED WATCHING TV. PATIENT APPEARS TO BE IN GOOD SPIRITS AND REPORTS HAVING A BETTER DAY TODAY THAN PREVIOUS, EXCEPT FOR THE PAIN IN HER LEFT LEG. PATIENT REPORTS PAIN "NOT SO BAD UNLESS I MOVE AND THEN IT IS LIKE A 5". DENIES NEEDS AT THIS TIME. CALL LIGHT IN REACH.
--- NOTE | 2017-09-04 20:04 | NUR ---
VITALS TAKEN AND CHARTED. WAITING TO DO I&OS DUE TO SHE WANTS TO WAIT TO TRY TO GO TO THE BATHROOM. BEDSIDE TABLE AND MIKE LIGHT WITHIN REACH.
--- NOTE | 2017-09-04 21:20 | NUR ---
EVENING MEDS GIVEN PER ORDERS. PATIENT REPORTS PAIN IS 3/10 WHILE AT REST. PATIENT IS AAOX4, BUT REPORTS FEELING FORGETFUL AND UNABLE TO RECALL IF SHE WORKED WITH PT TODAY. LUNG SOUNDS ARE CLEAR IN UPPER LOBES BILATERALLY AND DIMINISHED IN THE BASES. PATIENT ON 2L NC, THIS IS THE SAME LEVEL OF O2 SHE USES CHRONICALLY AT BED. PATIENT'S ABD IS FLAT, SOFT AND NONTENDER. BOWEL SOUNDS ACTIVE. PATIENT REPORTS FEELING CONSTANT ACHE IN HER LEFT LOWER EXTREMITIY. BRUISE NOTED ON LEFT HIP. PATIENT POSITIONED FOR COMFORT. OLEG HOSE IN PLACE ON LOWER EXTREMITIES. PATIENT DENIES ANY NEEDS AT THIS TIME. CALL LIGHT IN REACH.
--- NOTE | 2017-09-04 22:22 | NUR ---
HELPED PT TO BEDSIDE COMMODEAND BACK TO BED WITH HER WALKER. CALL LIGHT AND BEDSIDE TABLE WITHIN REACH.
--- NOTE | 2017-09-04 22:31 | NUR ---
DID BLADDER SCAN PER HER RN. SHE HAD 548 LEFT IN HER BLADDER. I INFORMED HER RN .
--- NOTE | 2017-09-04 23:00 | NUR ---
RN NOTED THAT LIDOCAIN PATCH THAT IS PRESENT ON THE PATIENT'S LEFT HIP. NO ORDERS IN EMAR REFLECT THE LIDOCAIN BEING PLACED OR TO BE REMOVED. DISCUSSED THIS WITH OPTOMETRIC TECH DIOGENES. USING CLINICAL JUDGMENT THIS RN REMOVED PATCH. PATIENT RESTING IN BED. APPEARS TO BE SLEEPING. PATIENT AROUSED TO VOICE AND TOUCH BY THE RN. PATCH REMOVED AND DISPOSED OF. PATIENT REPORTS PAIN AND REQUEST PRN PAIN MEDS.
--- NOTE | 2017-09-05 00:29 | NUR ---
PATIENT UP TO [facility] WITH AEROSPACE MANAGER NOVEMBER. PATIENT REPORTS PAIN "25" OUT OF 100. PATIENT COMPLAINS OF PAIN WITH MOVEMENT OF HER LEFT LEG. PATIENT CRIES OUT AND MOANS FREQUENTLY DURING TRANSFER. 1PA W/FWW, PATIENT APPEARS TO BE STEADY ON HER FEET. PRN PAIN MEDS PROVDIED. AEROSPACE MANAGER ASSISTED PATIENT BACK INTO BED.
--- NOTE | 2017-09-05 01:09 | NUR ---
HELPED PT TO THE BEDSIDE COMMODE WITH HER WALKER. GOT HER BACK TO BED. CHARTED OUTPUT. PT NEEDS NOTHING ELSE AT THIS TIME. BEDSIDE TABLE AND CALL LIGHT WITHIN REACH.
--- NOTE | 2017-09-05 01:30 | NUR ---
MD MADE AWARE OF PATIENT'S POST RESIDUAL VOLUMES. AND DISCUSSED ORDER FOR LIDOCAINE PATCH. MD REQUEST PATIENT BE UP TO VOID Q4H AT MINIMUM.
--- NOTE | 2017-09-05 04:50 | NUR ---
PATIENT DECLINED RN REQUEST TO GET HER UP TO THE BATHROOM. PATIENT RESTING IN BED. CALL LIGHT IN REACH.
--- NOTE | 2017-09-05 05:24 | NUR ---
PATIENT RESTED WELL THROUGHOUT THE NIGHT. PRN PAIN MEDS X1. UP TO BSC 1PA W/FWW. TOLERATED WELL. 2L NC. AAOX3 BUT FORGETFUL AT TIMES. USES CALL LIGHT APPROPRIATELY.
--- NOTE | 2017-09-05 06:40 | NUR ---
PATIENT UP FOR DAILY WT. [facility], PATIENT STEADY ON HER FEET. PERSONAL BELONGINGS IN REACH. NO NEEDS AT THIS TIME. CALL LIGHT IN REACH.
--- NOTE | 2017-09-05 08:02 | NUR ---
PATIENT IN CHAIR READY FOR BREAKFAST. FACE WASHED, PATIENT APPLIED HER FACE CREAM AND LOTION. RT DID PATIENT'S BREATHING TREATMENT. WHITEBOARD UPDATED, ROOM TIDIED.
--- NOTE | 2017-09-05 08:48 | NUR ---
PATIENT UP ON COMMODE TRYING TO HAVE BM. WILL CALL WHEN SHE IS FINISHED
--- NOTE | 2017-09-05 09:00 | NUR ---
PATIENT UP WITH PHYSICAL THERAPY, APPEARS TO BE IMPROVING. TRANSFERING WITH LESS ASSIST. PATIENT SITTING UP AT BEDSIDE DANGLING. THEN RECLINER. ATE WELL AT BREAKFAST.
--- NOTE | 2017-09-05 12:00 | NUR ---
PATIENT AND HAD LUNCH TOGETHER AND PATIENT ATE BETTER WITH . APPETITE INCREASED CONSUMED 80% LUNCH AND IS TAKING GOOD ORAL INTAKE. PATIENT UP TO BATHROOM TRANSFERING WELL. DENIES NEED FOR PAIN MED AT THIS TIME. SIGNED CONSENT FOR FLU VACCINE. VS STABLE
--- NOTE | 2017-09-05 18:54 | NUR ---
PATIENT UP OUT OF BED THROUGHOUT DAY. PAIN WELL CONTROLLED WITH TYLENOL 3. PATIENT EATING WELL AND VOIDING WELL. APPEARS TO HAVE A POSITIVE ATTITUDE TOWARDS PHYSICAL THERAPY AND WILLING TO PARTICIPATE.
--- NOTE | 2017-09-05 19:05 | NUR ---
SHIFT REPORT RECIEVED. PATIENT RESTING IN BED. TURNED TO LEFT SIDE. FRESH ICE WATER PROVIDED. PATIENT IN GOOD SPIRITS TONIGHT. REPORTS HAVING A GOOD DAY TODAY. CALL LIGHT IN REACH.
--- NOTE | 2017-09-05 20:45 | NUR ---
EVENING MEDS GIVEN PER ORDER. PRN TYLENOL PROVIDED FOR PAIN 5/10 IN THE LEFT HIP. PATIENT IS AAOX3. LUNG SOUNDS ARE CLEAR THROUGHOUT BUT DIMINISHED IN THE BASES. ABD IS SOFT AND NON TENDER. BOWEL SOUNDS ACTIVE. CMS INTACT. PATIENT ABLE TO REPOSITIONED HERSELF IN THE BED WITH ONE PERSON ASSIST. OLEG HOSE IN PLACE BILATERALLY. PATIENT DENIES TOILETING NEEDS AT THIS TIME. CALL LIGHT IN REACH.
--- NOTE | 2017-09-05 22:10 | NUR ---
VITALS AND I&OS DONE. PT NEEDS NOTHING ELSE AT THIS TIME. BEDSIDE TABLE AND CALL LIGHT WITHIN REACH.
--- NOTE | 2017-09-05 22:15 | NUR ---
JEWELL HASSAN ASSISTED PATIENT TO THE BSC.
--- NOTE | 2017-09-06 00:05 | NUR ---
PRN PAIN MEDS PROVIDED FOR PAIN 11/30. PATIENT DENIES TOILETING NEEDS AT THIS TIME. REPOSITIONED. PATIENT REPORTS BEING COMFORTABLE. CALL LIGHT IN REACH.
--- NOTE | 2017-09-06 00:44 | NUR ---
ASSISTED PT UP TO BEDSIDE COMMODE. PT TOLLERATED WELL. SBA WITH MINIMAL ASSISTANCE. PT HAD GOOD BALANCE. SLIGHTLY WEAK BUT ABLE TO PERFORM TASK IDEPENDANTLY. REFRESHED WATER. PT STATED IT WAS TOO BRIGHT IN HER ROOM. SHUT BATHROOM DOOR. PT REFUSED EYE MASK. NO OTHER NEEDS AT THIS TIME. CALL LIGHT WITHIN REACH. PT BACK TO BED.
--- NOTE | 2017-09-06 03:00 | NUR ---
PATIENT RESTING IN BED. EYES CLOSED. RR 18. CALL LIGHT IN REACH.
--- NOTE | 2017-09-06 04:34 | NUR ---
PATIENT USED CALL LIGHT TO ASK "WHAT TIME IS IT ANYWAYS". RN TOLD THE PATIENT THE TIME. PATIENT THEN REQUEST ASSISTANCE TO THE BATHROOM. MUNIR LAUGHLIN ASSISTED PATIENT TO THE BSC.
--- NOTE | 2017-09-06 05:43 | NUR ---
PATIENT RESTED WELL THROUGHOUT THE SHIFT. PRN PAIN MEDS X2. SBA W/FWW. 2L NC. AAOX3. CARDIAC DIET.
--- NOTE | 2017-09-06 06:15 | NUR ---
patient up to bedside for daily wt. tolerated well. patient back to bed. declined offer to move to recliner. patient reportspain 12/30. prn pain meds provided with morning meds. fresh water provided. call light in reach.
--- NOTE | 2017-09-06 07:25 | NUR ---
RECIEVED BEDSIDE REPORT FROM JEWELL COLON. PT SITTING UP IN BED, AWAKE, ALERT. IS ON 2L O2 VIA NC. PT DENIED NEEDS.
--- NOTE | 2017-09-06 08:38 | NUR ---
PT SITTING UP IN RECLINER, EATING BREAKFAST. TOOK AM MEDICATIONS. GAVE MILK OF MAGNESIA PRN C/O CONSTIPATION. PT DENIED OTHER NEEDS AT THIS TIME.
--- NOTE | 2017-09-06 09:33 | NUR ---
PT HAD EPISODE OF NAUSEA WITH EMESIS. GAVE PT ZOFRAN ODT 4 MG SL PRN.
--- NOTE | 2017-09-06 10:26 | NUR ---
PT SITTING UP IN RECLINER. DENIED NEEDS, STATED THAT SHE FELT TIRED AFTER WORKING WITH PHYSICAL THERAPY. DENIED PAIN.
--- NOTE | 2017-09-06 10:58 | NUR ---
PATIENT REFUSED BED BATH AND SHOWER TODAY. PATIENT IS SITTING UP IN CHAIR.
--- NOTE | 2017-09-06 12:51 | NUR ---
PT SITTING UP IN ALYSSA CARTER, RT GAVE PT NEB TX, AND THEN PT USED INSENTIVE SPIROMETER. PT DENIED NEEDS, DENIED PAIN.
--- NOTE | 2017-09-06 14:52 | NUR ---
PT SITTING UP IN BED, WATCHING "THE ANNEL GRIFITH SHOW" ON TV. REPORTED THAT HER PAIN IS IMPROVED AFTER RECIEVING PRN ANALGESIC. DENIED NAUSEA. DENIED NEEDS.
--- NOTE | 2017-09-06 17:08 | NUR ---
PT SITTING UP IN BED, DENIED NEEDS AT THIS TIME. TOOK POTASSIUM TABLETS ORDERED WITH PUDDING.
--- NOTE | 2017-09-06 18:10 | NUR ---
PT ON 2L O2 VIA NC, OXYGEN SATURATION LEVEL MAINTAINED AT OR GREATER THAN 90%. APETITE FAIR. UP WITH ONE PERSON ASSIST WITH FWW. LAST BM NOTED WAS 09/04/17, SO PT WAS GIVEN MILK OF MAGNESIA PRN. GIVEN ACETAMINOPHEN WITH CODIENE FOR REPORTS OF PAIN TO LEFT HIP/LEG.
--- NOTE | 2017-09-06 21:18 | NUR ---
PT SITTING UP IN BED, WATCHING TV. ALERT AND ORIENTED X4, PLEASENT AT THIS TIME. PT RATES PAIN IN HER LEFT "IN BETWEEN MY HIP AND MY KNEE, BUT MOSTLY IN MY KNEE," AT 8; GAVE TYLENOL 3 FOR PAIN. PT TOOK PILLS WITH VANILLA PUDDING PER REQUEST, ATE PUDDING AFTER TAKING PILLS. FRESH WATER AT BEDSIDE. CALL LIGHT IN REACH. NO FURTHER NEEDS.
--- NOTE | 2017-09-06 22:04 | NUR ---
pt appears to be sleeping. eyes are closed, rr wnl and unlabored. lights and tv off in room. call light in reach.
--- NOTE | 2017-09-06 22:11 | NUR ---
ASSISTED PATIENT FROM COMMODE BACK TO BED.
--- NOTE | 2017-09-06 23:22 | NUR ---
PATIENT CALLED, I ASKED HOW CAN I HELP, PATIENT STATED,"I DONT KNOW, IM NOT COMFORTABLE, MY LEGS HURT. PUT PILLOW UNDER LEGS, BOOST HER UP ON THE BED AND REPOSITIONED TO RT SIDE. PATIENT STATED "FEELS BETTER". JEWELL JAVIER NOTIFIED.
--- NOTE | 2017-09-07 00:15 | NUR ---
PT CALLED NURSES STATION. PT CONCERNED ABOUT ALL THE "ALARMS GOING OFF." EXPLAINED TO PT THAT IT IS NOT COMING FROM HER ROOM, THAT IT IS COMING FROM OTHER PT'S IN THE HOSPITAL. PT VERBALIZED UNDERSTANDING. NO FURTHER NEEDS AT THIS TIME. CALL LIGHT IN REACH.
--- NOTE | 2017-09-07 05:40 | NUR ---
PT HAD UNEVENTFUL NIGHT. SLEPT WELL THROUGHOUT SHIFT. PAIN WELL CONTROLLED WITH TYLENOL 3. NO NAUSEA. 2L VIA NC. PT ALERT AND ORIENTED OVERNIGHT. PLEASENT.
--- NOTE | 2017-09-07 05:42 | NUR ---
PT HAD UNEVENTFUL NIGHT. SLEPT WELL THROUGHOUT SHIFT. PAIN WELL CONTROLLED WITH TYLENOL 3. NO NAUSEA. 2L VIA NC. PT ALERT AND ORIENTED OVERNIGHT. PLEASENT.
--- NOTE | 2017-09-07 08:08 | NUR ---
PT AWAKE IN BED. HELPED TO CHAIR. SET UP FOR BRK. COMPLETE LINEN CHANGE. PICKED UP ROOM. FRESH ICE WATER.
--- NOTE | 2017-09-07 08:50 | NUR ---
PT SITTING UP IN RECLINER. ATE 30% OF BREAKFAST. DECLINED ENSURE, STATED THAT SHE FEELS TOO FULL AT THIS TIME. REPORTED PAIN TO LEFT KNEE, GAVE WARM PACK, PT REPORTS SOME RELIEF WITH THIS. IS ON 2L O2 VIA NC. LUNGS DIMINISHED.
--- NOTE | 2017-09-07 09:40 | NUR ---
PT IN BED AWAKE. SET PT UP FOR AM CARE. BEDBATH. BUT PT DID NOT WANT HER HAIR WASHED.
--- NOTE | 2017-09-07 12:03 | NUR ---
PT SITTING UP IN RECLINER, RESTING QUIETLY WITH EYES CLOSED. NO S/S DISTRESS OR DISCOMFORT. REMAINS ON 2L O2 VIA NC.
--- NOTE | 2017-09-07 13:20 | NUR ---
PT SITTING IN CHAIR-ALERT AND ORIENTED. PT SEEMS TO BE FEELING BETTER TODAY, HOWEVER SHE DID COMPLAIN OF PAIN IN HER LEFT CALF MUSCLE. HER COMES IN EVERY MORNING TO CHECK ON HER. HE ALSO HAS A BROKEN ANKLE. SHE SHARED WITH ME SOME OF HER LIFE, THANKED ME FOR LISTENING. PT REQUESTED PRAYER, WILL CONTINUE TO FOLLOW
--- NOTE | 2017-09-07 13:35 | NUR ---
PT SITTING UP IN RECLINER. C/O 04/01 PAIN TO LEFT HIP/LEG/KNEE. GAVE TYLENOL 3, 1 TAB PO PRN. PT REMAINS ON 2L O2 VIA NC. PT DENIES OTHER NEEDS AT THIS TIME.
--- NOTE | 2017-09-07 14:22 | NUR ---
PT IN BED I AND O DONE
--- NOTE | 2017-09-07 15:14 | NUR ---
Heart Failure education and assessment: Patient is alert and involved in discussion this morning. Demonstrated understanding of low sodium diet with teach back and of daily weight. PHQ-9 assessed today- score 6 +not difficult at all Min-Cog assessment completed- Word recall score-1 point, Clock draw-2 Total score 3. (A cut point of <3 on the Mini-Cog has been validated for demenitia screening).
--- NOTE | 2017-09-07 18:36 | NUR ---
PT DOING WELL. REMAINS ON 2L O2 VIA NC, OXYGEN SATURATION LEVELS WNL. LUNGS CLEAR, DIM IN BASES. HR IRREGULAR, BUT RATE WNL. BOWEL TONES ACTIVE X 4 QUADRANTS. PT UP IN RECLINER MOST OF SHIFT. AMBULATED WITH FWW WITH STANDBY ASSIST. WORKED WITH PHYSICAL THERAPY THIS SHIFT. PT RECIEVED TYLENONL 3 PRN FOR LEFT HIP AND KNEE PAIN. URINE OUTPUT QUANTITY SUFFICIENT.
--- NOTE | 2017-09-07 20:02 | NUR ---
2 WARM PACKS PLACED ON LEFT LEG, PER PATIENT.
--- NOTE | 2017-09-07 21:53 | NUR ---
PT LAYING IN BED, LIGHTS AND TV OFF, APPEARED ASLEEP. PT WOKE TO RN IN ROOM. PT RATES PAIN AT 4/10, STATES "WITH ME JUST LAYING HER STILL, ITS PRETTY GOOD." GAVE TYLENOL 3 FOR PAIN. FRESH WATER AT BEDSIDE. CALL LIGHT IN REACH.
--- NOTE | 2017-09-07 22:34 | NUR ---
PT APPEARS TO BE SLEEPING. RR WNL AND UNLABORED. LIGHTS AND TV OFF IN ROOM.
--- NOTE | 2017-09-08 06:13 | NUR ---
PT HAD UNEVENTFUL NIGHT. SLEPT WELL ENTIRE SHIFT. 2L VIA NC. TYLENOL 3 FOR PAIN. USES CALL LIGHT APPROPRIATLY. ALERT AND ORIENTED X4, BUT CAN BE FORGETFUL AT TIMES.
--- NOTE | 2017-09-08 07:34 | NUR ---
AT 0720 RECIEVED REPORT FROM JEWELL JAVIER. PER YAYA, PT HAD REQUESTED TO BE ALLOWED TO REST WHEN SHE RECIEVED TYLENOL 3 AT 0636, SO RECIEVED REPORT AT DOORWAY. THIS RN DID CHECK PT, AND OXYGEN TUBING, SETTING. PT SLEEPING SOUNDLY.
--- NOTE | 2017-09-08 09:33 | NUR ---
PT SITTING UP IN RECLINER. RATES PAIN TO LEFT HIP/LEG/KNEE /10. DENIES NAUSEA. ATE 75% OF BREAKFAST, AND DRANK A CLEAR APPLE ENSURE. PT SITTING UP IN RECLINER. WEARING O2 VIA NC AT 2L, SAT 100%. PT ALERT, ORIENTED X 4.
--- NOTE | 2017-09-08 11:00 | NUR ---
PT IS WORKING WITH PHYSICAL THERAPY. WILL CHECK BACK WITH PT AFTER SHE IS DONE.
--- NOTE | 2017-09-08 11:03 | NUR ---
DR. MARK ENTERED ORDER FOR GABAPENTIN 100 MG BID. ORDER SHOWED THAT FIRST DOSE WOULD BE AT 2[address] WITH [address]. MARK, WHO STATED THAT PT CAN HAVE FIRST DOSE NOW, AND NEXT AT 2100 SCHEDULED. NOTIFIED DERIK, PHARMACIST, WHO STATED THAT HE WOULD CHANGE ORDER TO REFLECT THIS.
--- NOTE | 2017-09-08 11:10 | NUR ---
PT SITTING UP IN RECLINER. GAVE GABAPENTIN 100 MG PO. PT RATED PAIN TO LEFT HIP, LEG, AND KNEE 4/10. JUST FINISHED WORKING WITH OCCUPATIONAL THERAPY. PT CHANGED INTO SMALLER GOWN, A ROBE, AND PAJAMA PANTS DURING O.T. PROVIDED WITH FRESH ICE WATER.
--- NOTE | 2017-09-08 11:32 | NUR ---
PT UP IN HALLWAY WITH FWW WITH NANCY PHYSICAL THERAPIST. AMBULATED FROM HER ROOM, 112, TO END OF COMBS NURSES' STATION, THEN BACK TO ROOM. PT TOLERANCE IS FAIR TO POOR.
--- NOTE | 2017-09-08 11:41 | NUR ---
PT NOW SITTING UP IN RECLINER. PER NANCY PHYSICAL THERAPIST, PT WAS ABLE TO CLIMB UP STAIRS APROPRIATELY, BUT WHEN DECENDING THE STAIRS PT LED WITH HER GOOD LEG RATHER THAN HER BAD LEG.
--- NOTE | 2017-09-08 13:00 | NUR ---
PT SITTING UP IN RECLINER. REMAINS ON 2L O2 VIA NC. PT TOOK APROXIMATELY 3 BITES OF CHEESE [place], REFUSED REST OF LUNCH. IS DRINKING ENSURE. REPORTED 3/10 PAIN TO LEFT HIP, LEG, AND KNEE. GAVE TYLENOL 3 1 TAB PO PRN.
--- NOTE | 2017-09-08 13:24 | NUR ---
PT UP TO BATHROOM USING FWW, WITH 1 PERSON ASSIST. PT VOIDED 300 CC, AND HAD A MEDIUM SOFT BM. PT THEN BACK TO RECLINER. HAS FEET ELEVATED WITH RECLINER, AND HAS A PILLOW UNDER FEET FOR COMFORT. PERSONAL SUPPLIES AND CALL LIGHT IN REACH. PT DENIED FURTHER NEEDS.
--- NOTE | 2017-09-08 13:34 | NUR ---
PT IS SITTING UP IN CHAIR. NO NEEDS AT THIS TIME. CALL LIGHT IS IN REACH.
--- NOTE | 2017-09-08 16:59 | NUR ---
PT UP TO BATHROOM WITH 1 PERSON ASSIST WITH FWW. PT VOIDED IN TOILET, MISSED HAT. PT HAD BEEN UP IN RECLINER, BUT AFTER USING BATHROOM PT WENT TO BED, PER HER REQUEST. REPORTED PAIN TO LEFT HIP AND KNEE 10/30. STATED THAT HER PAIN WAS AT A TOLERABLE LEVEL AT THIS TIME.
--- NOTE | 2017-09-08 18:08 | NUR ---
PT REMAINS ON 2L 02 VIA AR. LUNGS CTA. HR IRREGULAR, BUT PULSE WNL. URINE OUTPUT QUANTITY SUFFICIENT. PT'S APETITE FAIR TODAY. DID DRINK ENSURE WELL A PORTION OF EACH MEAL. WORKED WITH PHYSICAL THERAPY THIS AM, AMBULATED IN [place] A SHORT DISTANCE. PLAN IS FOR PT TO WORK WITH P.T. AGAIN THIS EVENING. PT HAD TYLENOL 3 AT APROXIMATELY 1300 FOR C/O PAIN TO LEFT HIP AND KNEE. ALSO STARTED GABAPENTIN THIS SHIFT FOR THIS PAIN. PT HAS NO IV ACCESS.
--- NOTE | 2017-09-08 18:41 | NUR ---
PT AMBULATED FROM HER ROOM, AROUND [facility] NURSE'S STATION, UP [place], AROUND [facility] NURSE'S SATION, AND BACK TO ROOM WITH NANCY, PHYSICAL THERAPIST. DURING PHYSICAL THERAPY, PT ALSO WORKED IN THERAPY ROOM WITH NANCY. PER NANCY'S REPORT, PT CLIMBED UP STAIRS, AND DOWN STAIRS WITHOUT ISSUE. NANCY DID REPORT THAT AT ONE POINT DURING AMBULATION, PT'S RIGHT LEG "GAVE OUT", BUT PT APPEARED TO TOLERATE THERAPY WELL DESPITE THIS. PT NOW BACK IN BED. ATE 10% OF DINNER. DECLINED FURTHER PO INTAKE AT THIS TIME.
--- NOTE | 2017-09-08 19:33 | NUR ---
RECIEVED BEDSIDE REPORT FROM DAY SHIFT RN. PT ON 2L O2. NO IV ACCESS AT THIS TIME. PT IN BED. NO NEEDS AT THIS TIME. CALL LIGHT WITHIN REACH. PERSONAL ITEMS WITHIN REACH.
--- NOTE | 2017-09-08 20:47 | NUR ---
PT SITTING UP IN BED WATCHING TV. ALERT AND ORIENTED X4 AT THIS TIME. PT REPORTS FEELING CONFUSED AT TIMES. AT THIS TIME PT IS PLEASENT AND TALKATIVE. RATES PAIN AT 3/10, WHICH IS A BETTER PAIN RATE THAN THE LAST TWO NIGHT SHIFTS. GAVE TYLENOL 3 PRN AND GABAPENTIN SCHEDULED FOR PAIN. NO FURTHER NEEDS. CALL LIGHT IN REACH. PILLS GIVEN WITH VANILLA PUDDING PER REQUEST.
--- NOTE | 2017-09-08 21:30 | NUR ---
PT RESTING IN BED. INDICATED 5/10 PAIN. TYLENOL GIVEN. CALL LGIHT WITHIN REACH. 2L O2 IN PLACE. CALL LIGHT WITHIN REACH. LIGHTS OUT.
--- NOTE | 2017-09-08 23:01 | NUR ---
PT SLEEPING. O2 IN PLACE. RR WNL. CALL LIGHT WITHIN REACH.
--- NOTE | 2017-09-09 00:48 | NUR ---
PT SLEEPING. RR WNL. CALL LIGHT WITHIN REACH. LIGHT AND TV OFF IN ROOM .
--- NOTE | 2017-09-09 03:56 | NUR ---
PT SLEEPING. O2 IN PLACE. RR WNL. CALL LIGHT WITHIN REACH. PERSONAL ITEMS AT BEDSIDE.
--- NOTE | 2017-09-09 04:18 | NUR ---
PT SLEPT THROUGHOUT THE NIGHT. 1PA. 2L O2 VIA NC. DAILY WEIGHTS. SWING BED. 1 TYLENOL 3 GIVEN TONIGHT ALONG WITH NEUROTIN FOR LEG PAIN. ON REGULAR DIET. ENCOURAGE INTAKE.
--- NOTE | 2017-09-09 04:25 | NUR ---
HEARD A CRASH. MYSELF ALONG WITH RICHA RN, ALLEN RN, KAREN RN, YAYA RN, ALONZO RN, NOVEMBER HEARD A CALL FOR HELP. WE RESPONDED WITHIN 30 SECONDS. WHEN ENTERING THE ROOM THE PT WAS ON THE GROUND IN FRONT OF THE BATHROOM. MELODY BRITOA AT PT SIDE HOLDING BACK OF HEAD. PT WAS BLEEDING FROM BACK OF HEAD. PT WAS A/O. V/S TAKE. C-SPINE WAS HELD IN PLACE. C-COLLAR WAS PUT ON PT. PT INDICATED PAIN ON BACK OF HEAD, AND LEFT LEG. PT HAS A HISTORY OF LEFT LEG PAIN FROM EARLIER IN HER STAY. B/P 166/83. RR 20. O2 99%. PT WAS LOG ROLLED ONTO BACK BOARD. AND UP TO BED. WAS NOTIFIED WHEN FALL HAPPENED. ORDERED CT OF THORACIC, LUMBAR, CERVICAL, AND HEAD. DR BARNES ARRIVED AT BEDSIDE THE PT WAS BEING TRANSFERED TO THE BED. DR BUENO ASSESSED PT FOR INJURIES.PT WAS SENT DOWN TO CT.
--- NOTE | 2017-09-09 04:34 | NUR ---
PT FELL IN ROOM. MD BARNES NOTIFIED AND SHE IS ON HER WAY.
--- NOTE | 2017-09-09 05:23 | NUR ---
AT 0420 PT CALLED TO USE BATHROOM. IT DISASTER RECOVERY MANAGER ASSISTED PATIENT UP AND TO THE BATHROOM. ASSISTED WITH ATTEND CHANGE. PT WAS TALKATIVE AND JOKING WITH IT DISASTER RECOVERY MANAGER. PT AND IT DISASTER RECOVERY MANAGER AGREED TO USE THE STANDING SCALE TO GET WEIGHT RIGHT AFTER USING BATHROOM SO PATIENT DID NOT HAVE TO BE WOKEN UP AGAIN IN A HALF HOUR. PT ASSISTED OUT OF THE BATHROOM USING WALKER. PT WALKED UP TO THE SCALE AND IT DISASTER RECOVERY MANAGER AND PT LINED THE WALKER UP TO SCALE TO HAVE PT STEP ON. IT DISASTER RECOVERY MANAGER WAS ON LEFT SIDE OF PATIENT. PT STEPPED ONTO SCALE WITH WALKER IN FRONT OF HER, BUT LEFT GO OF THE WALKER AND FELL BACKWARDS AND STRUCK HEAD ON FLOOR. IT DISASTER RECOVERY MANAGER STAYED WITH PT AND CALLED FOR HELP.
--- NOTE | 2017-09-09 05:49 | NUR ---
PT ARRIVED BACK TO FLOOR FROM CT SCAN. PT INDICATES PAIN OF 10/10. REFUSED TYLENOL OFFERED. WAITING FOR CT RESULTS TO CLEAR PT. NO FURTHER NEEDS AT THIS TIME.
--- NOTE | 2017-09-09 05:56 | NUR ---
ATEMPTED TO CALL IN [facility] TO PT FALL. CALLED . LINE WAS BUSY WILL TRY AGAIN.
--- NOTE | 2017-09-09 06:18 | NUR ---
GOT HUSBANDS CELL PHONE NUMBER FORM PT. CALLED AND LEFT MESSAGE FOR TO CALL BACK.
--- NOTE | 2017-09-09 06:30 | NUR ---
pt sitting up in bed, complaining of pain in her elbow mostly. gave tylenol3 for pain. pt alert and oriented x4. pleasent and talkative at the moment. pt eating pudding.
--- NOTE | 2017-09-09 06:54 | NUR ---
PT SON "XIANG" IN TO SEE HIS MOM. INFORMED HIM OF HIS MOTHER'S FALL AND THAT WE HAVE ATTEMTPED TO GET AHOLD OF HIS DAD. DR MARK DISCUSSING PT FALL/CONDITION WITH SON WELL. PRIOR TO DR. MARK TALKING TO SON, HE STATED, "I JUST DON'T SEE MOM COMING HOME EVER".
--- NOTE | 2017-09-09 07:07 | NUR ---
ct called saying bladder was grossly extended. did bladder scan. >[address] curry. order recieved for 1 time straight cath.
--- NOTE | 2017-09-09 07:09 | NUR ---
straight cathed pt. 1155 ml returned.
--- NOTE | 2017-09-09 08:14 | NUR ---
DOCTOR NICKI IN TO SEE THE PATIENT AND EXAMINE THE LACERATION IN HER HEAD. PATIENT IS SITTING UP IN BED EATING HER BREAKFAST. SHE IS ALERT AND ORIENTED AND HER FAMILY REMAINS IN THE ROOM WITH HER. PAIN AT THIS TIME IS AT A 2/10 IN HER LEFT LEG. SHE WOULD LIKE HER PAIN TO BE AT A 0/10. AM MEDICATION GIVEN TO THE PATIENT AT THIS TIME.
--- NOTE | 2017-09-09 08:51 | NUR ---
PATIENT IS SLEEPING RIGHT NOW.
--- NOTE | 2017-09-09 09:31 | NUR ---
PATIENT SHOWER COMPLETED AT THIS TIME, PATIENT 2 PERSON ASSIST TO AMBULATE WITH FWW TO THE BATHROOM, ANUEL CARE DONE, HAIR WASHED AND LACERATION TO THE BACK OF THE HEAD IRRIGATED WITH STERILE TECHNIQUE, PATIENT DID NOT ENJOY THIS, LACERATION IS 1CM IN HEIGHTH AND 0.5 CM WIDE. BRUISE NOTED TO THE RIGHT ELBOW. HEEL PROTECTOR ON THE PATIENT WHEN SHE IS BACK IN BED. NEW OLEG HOSE APPLIED AND LINEN CHANGED. RAILS UP AND BED ALARM BACK ON. PATIENT REMAIN ON OXYGEN AT 2L DURING THIS.
--- NOTE | 2017-09-09 12:28 | NUR ---
PATIENT'S LACERATION ON THE BACK OF HER HEAD COVERED WITH GAUZE AND KERLIX AT THIS TIME. LACERATION IS STILL OPEN AND HAS RED/BLOODY DRAINAGE PRESENT PATIENT. SHE IS UNABLE TO VOID AT THIS TIME, ASSISTED PATIENT UP TO THE COMMODE AFTER BLADDER SCANNING HER FOR 600MLS OF URINE. PATIENT WAS A 2 PERSON TRANSFER.
--- NOTE | 2017-09-09 12:31 | NUR ---
PATIENT IS UP SITTING ON THE BSC. EATING HER ICE CREAM.
--- NOTE | 2017-09-09 12:33 | NUR ---
NURSE AND I GAVE HER A SHOWER THIS MORNING. SHAMPOOED HAIR.
--- NOTE | 2017-09-09 12:40 | NUR ---
DOCTOR JAS CALLED AND NOTIFIED THAT PATIENT HAS NOT VOIDED, SHE HAD A BM IN THE COMMODE BUT WAS UNABLE TO VOID. ROMERO ORDERED AT THIS TIME
--- NOTE | 2017-09-09 13:17 | NUR ---
CARE OF PATIENT TX TO MELODY AT THIS TIME. REPORT HANDED OFF TO HER. ROMERO WAS PLACED ON THE PATIENT AND 800MLS OF CLEAR YELLOW URINE EMPTIED FROM THE BLADDER.
--- NOTE | 2017-09-09 14:30 | NUR ---
PATIENT HEAD REWRAPPED WITH COBAN, COMPLAINS JÚNIOR WRAP FALLING OFF, SPOTS OF BLOOD ON PILLOW. NEUROS UNCHANGED.
--- NOTE | 2017-09-09 18:33 | NUR ---
THE NURSE AND I GOT HER BACK TO BED. BED ALARM IS ON.
--- NOTE | 2017-09-09 18:48 | NUR ---
PATIENT WORKED WITH PHYSICAL THERAPY AND DID WELL MARCHING IN PLACE. PATIENT LEG WRAPPED WITH TAPE APPEARS TO HELP. COBAN AND GAUZE TO HEAD LACERATION, RINSED BLOOD OUT OF HAIR WITH NS. PATIENT LARGE HEMATOMA TO RIGHT ELBOW, ICE APPLIED. HAS BEEN HAVING PAIN IN LEFT KNEE, ELEVATED ON PILLOW AND PROVIDED ICE PACK. PATIENT NEUROS UNCHANGED AND STABLE, PUPILS DO NOT RESPOND TO LIGHT, HOWEVER EQUAL IN SIZE.
--- NOTE | 2017-09-09 20:00 | NUR ---
RECEIVED REPROT AT 1900. FOUND PT IN BED RESTING. PT HAD NO CONCERNS AT THAT TIME.
--- NOTE | 2017-09-09 22:00 | NUR ---
V/S ARE WDL, ALL LOBES HAVE EXPIRATORY WHEEZING. PT DENIES SOB. PT USES 2L O2 NC. PT IS SORE OVERALL FROM HER FALL THIS MORNING. WOUND ON BACK OF HER HEAD IS ROXIE AND C/D. PT IS AAOX4. PT ALMOST REFUSED ASSESSMENT. PT WAS IN A BAD MOOD. NO NEW ISSUES NOTED SO FAR. PT WANTS TO BE LEFT ALONE TONIGHT. I WILL HONOR HER WISHES.
--- NOTE | 2017-09-10 01:18 | NUR ---
PT IS SLEEPING.
--- NOTE | 2017-09-10 02:30 | NUR ---
PT IS SLEEPING AT THIS TIME.
--- NOTE | 2017-09-10 04:29 | NUR ---
PT IS SLEEPING AT THIS TIME.
--- NOTE | 2017-09-10 05:57 | NUR ---
PT AT START OF SHIFT WAS VERY AGITATED AND ALMOST REFUSED HER ASSESSMENT. PT STATED TO ME THAT SHE JUST WANTED TO BE LEFT ALONE. I RESPECTED HER WISHES AND SHE HAS BEEN SLEEPING EVERYTIME I LAID EYES ON HER. LACERATION IN BACK OF HER HEAT IS OPA AND C/D. ALL LOBES HAD EXPIRATORY WHEEZING. PT DENIED SOB. PT OVERALL SEEMS WEAK. NO NEW ISSUES NOTED.
--- NOTE | 2017-09-10 06:23 | NUR ---
PT REFUSED HER THYROID MEDS AND STATED THAT SHE WANTS TO BE LEFT ALONE AND . TOTAL PO INTAKE WAS ONLY ABOUT 100ML THIS SHIFT. OUTPUT WAS ONLY 400ML THIS SHIFT. WILL CALL MD BARNES.
--- NOTE | 2017-09-10 08:27 | NUR ---
PATIENT UP TO RECLINER, STATES " MORTUARY TECHNICIAN CALLED ME A FLIGHT RISK, AND WOULDN'T LET ME HAVE MY SIDE RAILS DOWN, I FELT CONTAINED". PATIENT VERBALIZES KNOWING SHE IS WEAK AND UNSTEADY WHEN SHE STANDS. PATIENT AMBULATED TO RECLINER WITH WALKER AND GAIT BELT. ADMINISTERED 1 TAB OF TYLENOL WITH CODEINE. PATIENT APPEARS TO BE IN GOOD MOOD, AND SON VISITED THIS MORNING.
--- NOTE | 2017-09-10 15:32 | NUR ---
PATIENT AMBULATED FULL LAP IN HALLS, APPEARS TO BE CALM AND COMFORTABLE. HEMATOMA TO RIGHT ELBOW APPEARS IMPROVED. AND LEFT HIP PAIN IMPROVED WELL. PATIENT SATURATION DE SAT TO 85% ON 2L, HOWEVER SATURATION IMPROVED WHEN SHE STOPPED WITH AND TOOK SOME DEEP BREATHS. RATED PAIN 5/10 AFTER AMBULATION, STATED " THAT WIPED ME OUT". PATIENT VERY PLEASED WITH SELF, AND NOW RESTING BACK IN BED.
--- NOTE | 2017-09-10 15:58 | CONS ---
[facility] [address], [place] [address] Signed DATE OF CONSULTATION: 09/09/2017 PROBLEM: Bedside fall without loss of consciousness with small laceration occiput of the scalp. HISTORY OF PRESENT ILLNESS: This 87-year-old white woman is under the care of Dr. Rhodes and has been hospitalized for several days. She was admitted on September [address] Michaels for decompensation of chronic diastolic heart failure. She has had several spontaneous intramuscular hematomas of the left lower extremity and left anterolateral abdominal wall muscles. She has rather significant deconditioning. Other medical issues include moderate aortic regurgitation and heart failure with preserved ejection fraction, right ventricular systolic dysfunction, COPD, atrial fibrillation with discontinuation of anticoagulation due to spontaneous bleeding, reflux disease, and hypothyroidism. 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 She elected to have surgical resection elsewhere. Today, she was getting out of bed against a plan of care and fell striking the back of her head. She did not have loss of consciousness. She was evaluated by Dr. Rhodes. This included a head CT, lumbar spine CT, thoracic CT, elbow x-ray, and cervical spine. All of these studies were reported as normal and without sign of acute injury. In particular to those, no sign of intracranial bleeding, intracerebral hemorrhage of any sort, skull fracture, or other issues. There was some frontal scalp soft tissue swelling, though the occiput of her head is were a laceration was noted. I was asked to see the patient by Dr. Rhodes to additionally evaluate for request of issues related to the scalp laceration. PHYSICAL EXAMINATION: GENERAL: She is accompanied by her son and I believe her or elderly significant other. She is alert and oriented. Extraocular eye movements are normal. Occlusion is normal. She mentates well and as she has in the past from my recollection. NECK: Trachea is midline. There is no tenderness of her neck. CHEST: Shows no external abnormality or tenderness. ABDOMEN: Soft and nontender. MUSCULOSKELETAL: She does have some tenderness of her left leg, but no sign of active hematoma or angulation deformity, though she does have chronic joint disease. SKIN: Examination of her scalp shows a 1 cm laceration that is not actively bleeding. There was a small amount of clot associated with matted hair. A gauze dressing is applied. ASSESSMENT: Electronically Signed By: BARNEY CACERES MD 09/10/17 1558 PATIENT NAME: TABATHA HU CONSULTATION DATE OF : [birth year] PHYSICIAN: BARNEY CACERES MD REPORT #: [id number] REPORT IS CONFIDENTIAL AND NOT TO BE RELEASED WITHOUT AUTHORIZATION [facility] [address], [place] [address] Signed She appears to have no significant intracranial or spinal injury of any sort and numerous radiographs confirmed this as well. I spoke with Sylvester, her nurse and I have recommended irrigation of the wound with sterile saline. A 500 mL in total. I do not believe she will require suturing of this lesion, simply gauze dressing will be adequate. If there are further issues, I am happy to assist. Banrey Caceres MD JM/MODL /[id number] cc: Annette Rhodes MD Electronically Signed By: BARNEY CACERES MD 09/10/17 1558 PATIENT NAME: TABATHA HU CONSULTATION DATE OF : [birth year] PHYSICIAN: BARNEY CACERES MD REPORT #: [id number] REPORT IS CONFIDENTIAL AND NOT TO BE RELEASED WITHOUT AUTHORIZATION
--- NOTE | 2017-09-10 18:30 | NUR ---
PATIENT COMPLAINTS OF PAIN IN LEFT HIP, ANKLE AND FOOT. PATIENT STATES " IT JUST KEEPS GETTING WORSE." REPORTED TO DR. COLON, NEW ORDERS FOR PATIENT TO HAVE XRAYS DONE. INFORMED PATIENT.
--- NOTE | 2017-09-10 20:00 | NUR ---
RECEIVED REPORT AT 1900. FOUND PT IN BED AND IN GOOD SPIRITS. PT HAD NO IMMEDIATE CONCERNS AND WE CAME TO A CONSENSUS TO DO HER ASSESSMENT KENNY IN ORDER FOR HER TO GO TO SLEEP. PT HAD NO OTHER CONCERNS AT THAT TIME.
--- NOTE | 2017-09-10 20:04 | NUR ---
PATIENT IN BED. STATES SHE DOESN'T NEED ANYTHING AT THIS TIME. WHITEBOARD UPDATED. ROOM TIDIED.
--- NOTE | 2017-09-10 22:00 | NUR ---
V/S WERE WDL, ALL LOBES ON HER LEFT SIDE WERE CLEAR ALONG WITH RIGHT UPPER LOBE. RIGHT MIDDLE AND LOWER LOBE HAD INSPIRATORY WHEEZING PRESENT. ABD SOUND ARE PRESENT IN ALL QUADRANTS. PAIN IS NOT VERY WELL CONTROLLED WITH PRN PAIN MEDS SO FAR. PT SEEMS STRONGER TODAY THAN YESTERDAY AND SHE HAS A MUCH BETTER APPETITE. NO NEW CONCERNS NOTED FOR THIS PT SO FAR.
--- NOTE | 2017-09-11 | NUR ---
PT IS SLEEPING.
--- NOTE | 2017-09-11 02:38 | NUR ---
PT IS STILL SLEEPING AT THIS TIME.
--- NOTE | 2017-09-11 05:15 | NUR ---
PT HAS BEEN SLEEPING MOST OF THIS SHIFT. V/S ARE WDL. LEFT LOBES WERE CLEAR AND SO WAS RIGHT UPPER AND LOWER LOBE. RIGHT MIDDLE LOBE HAD SOME INSPIRATORY WHEEZING PRESENT. PT DENIED ANY SOB, PT IS STILL ON 2L O2 NC. PAIN SEEMS TO BE CONTROLLED SO FAR. PT OVERALL WAS COOPERATIVE AND IN GOOD SPIRITS THIS SHIFT.
--- NOTE | 2017-09-11 08:19 | NUR ---
PT 1PA WITH WALKER TO TAKE A FEW STEPS TO RECLINER FOR BREAKFAST. PT REPORTING GENERALIZED PAIN 2/10, DENIES NEED FOR PAIN MEDICATION AT THIS TIME. DENIES NAUSEA OR OTHER CONCERNS. ALERT AND ORIENTED. PT CURRENTLY SITTING UP IN RECLINER EATING BREAKFAST INDEPENDENTLY. ROMERO PATENT, PUTTING OUT CLEAR YELLOW URINE. PT DENIES ANY DIFFICULTY BREATHING OR SOB. SATTING 95% ON CHRONIC 2L O2 NC. CALL LIGHT WITHIN REACH.
--- NOTE | 2017-09-11 09:30 | NUR ---
PT AMB WITH P.T., DOING STAIRS, GEETA WELL.
--- NOTE | 2017-09-11 09:30 | NUR ---
WALKED PT WITH PHYSICAL THERAPY IN THE HALLS.
--- NOTE | 2017-09-11 09:42 | NUR ---
asssited physical therapy with pt walk, wheelchair assist was needed.
--- NOTE | 2017-09-11 10:59 | NUR ---
pt requested pain medication, i notified charge nurse and she got her some!
--- NOTE | 2017-09-11 11:10 | NUR ---
PT CALLED C/O 06/01 LEFT LEG PAIN. KILLIAN Rosales RN MEDICATED PT WITH TYLENOL WITH CODEINE. PT SITTING IN RECLINER AT THIS TIME TRYING TO REST. CALL LIGHT WITHIN REACH.
--- NOTE | 2017-09-11 11:44 | NUR ---
HEATHER MURPHY'D AT THIS TIME PER ORDERS. PT GEETA WELL. SITTING IN RECLINER DENIES NEEDS OR CONCERNS, "JUST WANT TO REST." CALL LIGHT WITHIN REACH.
--- NOTE | 2017-09-11 13:10 | NUR ---
ASKED PT IF SHE WOULD LIKE A SHOWER. PT SAID NO. INFORMED PT I WOULD CHECK BACK WITH HER TO SEE IF SHE CHANGED HER MIND.
--- NOTE | 2017-09-11 15:30 | NUR ---
PT SBA WITH WALKER TO RESTROOM. WAS UNABLE TO VOID AT THIS TIME. AMB TO BED AND RESTING AT THIS TIME. CALL LIGHT WITHIN REACH.
--- NOTE | 2017-09-11 15:51 | NUR ---
PT BLADDER SCANNED FOR 200ML, WILL CONTINUE TO TOILET REGULARLY UNTIL VOID. PT RESTING IN BED WATCHING TV, CALL LIGHT LIGHT WITHIN REACH.
--- NOTE | 2017-09-11 16:25 | NUR ---
PT STATES SHE WOULD LIKE A PAIN PILL IF SHE CAN HAVE ONE. PT HAS NO OTHER NEEDS AT THIS TIME. WILL INFORM RN OF PT REQUEST. CALL LIGHT IS IN REACH.
--- NOTE | 2017-09-11 16:40 | NUR ---
PT MEDICATED WITH TYLENOL WITH CODEINE FOR 5/10 COMPLAINTS OF LEFT LEG AND HIP PAIN. WARM PACK APPLIED TO RIGHT ELBOW PER REQUEST. SITTING IN BED WATCHING TV. CALL LIGHT WITHIN REACH.
--- NOTE | 2017-09-11 18:34 | NUR ---
PT ATTEMPTED TO VOID AGAIN WITHOUT SUCCESS. BLADDER SCANNED FOR 300ML. NOTIFIED DR. COLON. NO NEW ORDERS, WILL CONTINUE TO MONITOR. ENCOURAGED PO INTAKE.
--- NOTE | 2017-09-11 22:23 | NUR ---
PT RATES PAIN 10/10 TO L HIP TO ANKLE. PRN PAIN MEDICATION ADMINISTERED. PT ASSESSMENT COMPLETE. PT WATER REFILLED PER REQUEST. DENIES OTHER NEEDS AT THIS TIME. PT AGREES TO GET UP AND USE BATHROOM AFTER A FEW MINUTES WHEN PAIN PILL KICKS IN. CALL LIGHT WITHIN PT'S REACH.
--- NOTE | 2017-09-11 23:16 | NUR ---
TOOK THE PATIENT TO THE BATHROOM. NOT ABLE TO VOID BUT BM. JEWELL DAWKINS NOTIFIED.
--- NOTE | 2017-09-11 23:41 | NUR ---
PT BLADDER SCANNED AFTER INABILITY TO VOID. 450 ML ON BLADDER SCAN, MD NOTIFIED, WILL CONTINUE TO MONITOR PER MD.
--- NOTE | 2017-09-12 03:15 | NUR ---
PT RESTING IN BED WITH EYES CLOSED. RESPIRATIONS EVEN AND UNLABORED. PT APPEARS TO BE SLEEPING. PT DOES NOT WAKE WHILE CULTURE MANAGER IN DOORWAY. CALL LIGHT WITHIN PT REACH.
--- NOTE | 2017-09-12 04:21 | NUR ---
PT USES CALL LIGHT, REQUESTS PAIN MEDICATION. PT REPORTS PAIN, 10/10 TO L LEG. DESCRIBES PAIN THROBBING. PRN TYLENOL WITH CODIENE ADMINISTERED. PT DENIES OTHER NEEDS AT THIS TIME. PT AGREES TO GET UP TO BATHROOM WITH BALING MACHINE TENDER ASSISTANCE TO ATTEMPT TO VOID. CALL LIGHT WITHIN PT'S REACH.
--- NOTE | 2017-09-12 04:50 | NUR ---
PT SITTING UP ON TOILET. DENIES URGE TO VOID, STATES THAT SHE IS TRYING. PT PASSING SMALL AMOUNTS OF STOOL. NEURO CHECK COMPLETE, WNL. PT UNDERSTANDS TO PULL CALL LIGHT STRING WHEN SHE IS FINISHED USING THE BATHROOM, PT URGED TO TAKE HER TIME.
--- NOTE | 2017-09-12 05:19 | NUR ---
PT CONTINUES TO BE UNABLE TO VOID, BLADDER SCAN SHOWS 722 ML. MD TO BE NOTIFIED.
--- NOTE | 2017-09-12 06:14 | NUR ---
INDWELLING ROMERO CATH, 16 F, PLACED PER MD ORDER. IMMEDIATE RETURN OF 650 CLEAR YELLOW URINE. PT DENIES FEELING RELIEF OR CHANGE IN SENSATION. STATES "I SHOULD HAVE BEEN ABLE TO FEEL THAT" WHEN TOLD HOW MUCH URINE WAS IN HER BLADDER. PT TOLERATED WELL. DENIES OTHER NEEDS AT THIS TIME. CALL LIGHT WITHIN REACH.
--- NOTE | 2017-09-12 07:20 | NUR ---
PT IN BED. AWAKE, ALERT. DENIED NEEDS. RECIEVED BEDSIDE REPORT FROM JEWELL DAWKINS.
--- NOTE | 2017-09-12 08:43 | NUR ---
PT IN BED, HOB ELEVATED. ATE APROXIMATELY 25% OF BREAKFAST, DRANK CLEAR ENSURE. RATED PAIN LEFT KNEE 04/01, PRN TYLENOL 3 NOT YET AVAILABLE. PROVIEDED HEAT PACK.
--- NOTE | 2017-09-12 08:46 | NUR ---
PT SITTING UP FOR BREAKFAST. STATES NO NEEDS AT THIS TIME. PT UNSURE IF SHE WANTS A SHOWER. WILL CHECK BACK WITH PT BEFORE LUNCH AND AFTER LUNCH. CALL LIGHT IS IN REACH.
--- NOTE | 2017-09-12 08:57 | NUR ---
TOOK PT TWO HOT PACKS FOR HER LEFT HIP, AND LEFT KNEE.
--- NOTE | 2017-09-12 09:38 | NUR ---
PT GIVEN FRESH ICE WATER GIVEN AND ROMERO EMPTIED BY MUNIR POPE. VITALS AND I&O'S TAKEN AND DOCUMENTED. PHYSICAL THERAPY IN ROOM TO WORK WITH PT.
--- NOTE | 2017-09-12 09:47 | NUR ---
PT IS WORKING WITH PT DOING EXCERSISES WHSHE WE WAIT FOR A NEW OXYGEN TANK.
--- NOTE | 2017-09-12 10:32 | NUR ---
PT NEEDED ASSISTANCE OFF OF THE COMMODE, SHE GOT BACK IN HER CHAIR AND SHE ASKED FOR HER FACE CLEANSING STUFF, SHE WAS ALL COMFORTABLE WITH CALL LIGHT IN REACH.
--- NOTE | 2017-09-12 10:55 | NUR ---
PT C/O 04/01 PAIN TO LEFT HIP AND LEG. GAVE TYLENOL 3, 1 TAB PO PRN. PT SITTING UP IN RECLINER. REPORTED THAT SHE WORKED WITH PHYSICAL THERAPY THIS AM, BUT STATED THAT SHE DID NOT AMBULATE IN THE HALLS, OR WORK IN THE THERAPY ROOM. PT STATED THAT SHE AND THE PHYSICAL THERAPIST WORKED ON ACTIVITIES IN PT'S ROOM.
--- NOTE | 2017-09-12 11:11 | NUR ---
HELPED REPOSITION PATIENT IN HER CHAIR, SHE WANTS TO STAY UP AND EAT LUNCH IN HER CHAIR IF SHE CAN TOLERATE IT.
--- NOTE | 2017-09-12 12:00 | NUR ---
PT IS BACK IN ROOM AFTER WALKING WITH PHYSICAL THERAPY. CALL LIGHT IN REACH.
--- NOTE | 2017-09-12 13:02 | NUR ---
PT SITTING UP IN RECLINER, SPOUSE IN ROOM WITH PT. DENIED NEEDS AT THIS TIME.
--- NOTE | 2017-09-12 13:23 | NUR ---
PT'S IS REQUESTING TO SPEAK WITH MD. DR. COLON IS AWARE. PT TRANSFERED FROM CHAIR TO BED. MUNIR POPE, ASSISTED WITH PT CARE. WARM BLANKETS GIVEN WELL. CALL LIGHT IS IN REACH.
--- NOTE | 2017-09-12 13:25 | NUR ---
PT'S MADE AWARE THAT DR. COLON WAS IN ANOTHER PT'S ROOM AND WILL BE IN SOON HE CAN.
--- NOTE | 2017-09-12 16:02 | NUR ---
PT WAS ASKED IF SHE WOULD LIKE A SHOWER THIS AM. PT SAID "ABSOLUTEY NOT." ASKED PT IF SHE WOULD LIKE A BEDBATH. PT DENIED BOTH TIMES SHE WAS ASKED. STATES SHE IS TOO TIRED AND WILL MAYBE WANT TO CLEAN UP AFTER DINNER.
--- NOTE | 2017-09-12 16:02 | NUR ---
PT IN BED. GAVE SCHEDULED POTASSIUM 40 MEQ PO. PT RECIEVING NEB TX FROM KB, RT. PT DENIED OTHER NEEDS AT THIS TIME.
--- NOTE | 2017-09-12 16:35 | NUR ---
GAVE PT HEAT PACKS FOR LEFT HIP AND LEFT KNEE. PT STATED THAT HEAT PACKS ARE HELPING WITH PAIN TO LEFT HIP AND KNEE.
--- NOTE | 2017-09-12 16:52 | NUR ---
PT UP IN RECLINER OFF AND ON THROUGH SHIFT. HAD C/O PAIN TO LEFT HIP, LEFT KNEE, PAIN CONTROLLED WITH REST, PRN TYLENOL 3, AND HEAT PACKS. UP WITH 1 PERSON ASSIST WITH FWW. WORKED WITH PHYSICAL THERAPY THIS SHIFT. APETITE FAIR. NO C/O NAUSEA. PT ALERT, ORIENTED X 3. NEURO CHECKS BENIGN. HR REMAINS IRREGULAR, BUT CONTROLED RATE.
--- NOTE | 2017-09-12 17:14 | NUR ---
PT C/O 9/10 PAIN TO LEFT KNEE AND HIP. PT SITTING UPRIGHT IN BED, EATING DINNER. GAVE TYLENOL 3, 1 TAB PO PRN. PT DENIED OTHER NEEDS AT THIS TIME.
--- NOTE | 2017-09-12 18:06 | NUR ---
PT DID NOT EAT DINNER. GAVE PT A CLEAR ENSURE, PT AGREED TO ATTEMPT TO DRINK THIS. PT ASSISTED TO TRASFER FROM BED TO RECLINER WITH 1 PERSON ASSIST. HAS LEGS ELEVATED IN RECLINER. PERSONAL SUPPLIES AND CALL LIGHT IN REACH. PT DENIED OTHER NEEDS.
--- NOTE | 2017-09-12 19:54 | NUR ---
TOOK TO THE BATHROOM AND BACK TO CHAIR WITH WALKER. TOOK V/S, REFILLED ICE WATER. CALL LIGHT WITHIN REACH. RT DWIGHT IN ROOM.
--- NOTE | 2017-09-12 21:06 | NUR ---
PT SITTING UP IN CHAIR WATCHING TV. PT RATES PAIN TO LLE 3/10, STATES THAT PAIN IS TOLERABLE AT THIS TIME. PT ASSESSMENT COMPLETE. PT WOULD LIKE TO WAIT A WHILE TO GO TO BED. AGREES TO USE CALL LIGHT WHEN SHE IS READY. CALL LIGHT IN PT'S LAY, PT DENIES OTHER NEEDS AT THIS TIME.
--- NOTE | 2017-09-12 23:31 | NUR ---
PT USES CALL LIGHT, REQUESTS PAIN MEDICATION. PRN TYLENOL WITH CODIENE ADMINISTERED. PT RATING PAIN 8/10 TO LEFT HIP TO KNEE. PT DENIES OTHER NEEDS AT THIS TIME. CALL LIGHT WITHIN REACH.
--- NOTE | 2017-09-13 00:51 | NUR ---
PT RESTING IN BED WITH EYES CLOSED. PT DOES NOT WAKE WHILE SOCIETY EDITOR IN DOORWAY. RESPIRATIONS EVEN AND UNLABORED. PT APPEARS TO BE SLEEPING. CALL LIGHT WITHIN REACH.
--- NOTE | 2017-09-13 02:59 | NUR ---
PT RESTING IN BED WITH EYES CLOSED. RESPIRATIONS EVEN AND UNLABORED. PT APPEARS TO BE SLEEPING, DOES NOT WAKE WHILE WRTIER IN DOORWAY. CALL LIGHT WITHIN REACH.
--- NOTE | 2017-09-13 05:09 | NUR ---
PT CALLING "HELP ME". SUPERVISOR PUBLIC HEALTH NURSING IN ROOM, PT STATES "OH, I THOUGHT I WAS ALONE." PT REORIENTED TO SURROUNDINGS. PT STATES "I MUST HAVE BEEN HAVING A NIGHTMARE." PT DENIES NEEDS AT THIS TIME. ICE WATER REFILLED. CALL LIGHT WITHIN PT'S REACH.
--- NOTE | 2017-09-13 05:12 | NUR ---
TYLENOL 3 X1 THIS SHIFT FOR PAIN TO LLE. NO SIGNIFICANT FINDINGS ON NEURO CHECKS. ROMERO CATH DRAINING CLEAR YELLOW URINE. DECREASED APPETITE, SUPPLEMENT WITH ENSURE. SBA WITH FWW. NO IV ACCESS.
--- NOTE | 2017-09-13 06:30 | NUR ---
PT REPORTS INCREASING PAIN TO LLE. RATES 11/30. PRN TYLENOL WITH CODEINE ADMINISTERED. PT DENIES OTHER NEEDS AT THIS TIME. CALL LIGHT WITHIN REACH.
--- NOTE | 2017-09-13 09:05 | NUR ---
PATIENT UP TO SHOWER WITH ONE PERSON ASSIST WITH FWW. ROMERO CATH CARE DONE. SKIN AND ORAL CARE DONE. LINENES CHANGED. PATIENT SITTING UP IN CHAIR WITH FEET ELEVATED. CALL BUTTON IN REACH. FRESH ICE WATER GIVEN. WARM BLANKET GIVEN.
--- NOTE | 2017-09-13 09:23 | NUR ---
PT SITTING UP IN RECLINER. REPORTS PAIN TO LEFT HIP, KNEE, LEG IS TOLERABLE AT THIS TIME, RATES PAIN 4/10. PT REPORTS THAT SHE TOOK A SHOWER WITH ASSISTANCE FROM ANA CRISTINA AMARAL. REMAINS ON 2L O2 VIA NC, OXYGEN SATURATION LEVEL 93%. ROMERO CATHETER IN PLACE, DRAINING CLEAR YELLOW URINE.
--- NOTE | 2017-09-13 09:39 | NUR ---
PT ATE 50% OF MEAL, DRANK 100% OF CLEAR ENSURE. GAVE HEAT PACKS FOR LEFT HIP AND KNEE FOR C/O SORENESS.
--- NOTE | 2017-09-13 09:44 | NUR ---
PT C/O INCREASED PAIN TO 5/10 TO LEFT HIP, KNEE. GAVE ACETAMINOPHEN 325 MG PO PRN. PT STILL HAS HEAT PACKS TO LEFT HIP AND KNEE. PT DENIES OTHER NEEDS AT THIS TIME.
--- NOTE | 2017-09-13 09:56 | NUR ---
PT SITTING UP IN RECLINER. REPORTS THAT HEAT PACKS ARE HELPING RELIEVE PAIN TO LEFT HIP AND KNEE. DENIES NEEDS.
--- NOTE | 2017-09-13 10:32 | NUR ---
CALLED AND SPOKE WITH PT ABOUT SETTING UP A CARE CONFERENCE REGARDING [facility], HE SAID HE WOULD WELCOME THE OPPORTUNITY AND COULD BE HERE IN ABOUT 30 MINUTES. REQUESTED Daniel PUTNAM [employer] [facility], Jones RABAGO RN DEPT SLURRY MIXER, NOHEMY CORCORAN, NANCY PT, OT, RT, MYSELF, PHARMACY TO BE PRESENT FOR CARE CONFERENCE.
--- NOTE | 2017-09-13 10:48 | NUR ---
PT UP AMBULATING IN [place] WITH NANCY PHYSICAL THERAPIST. IS NOW BACK TO ROOM.
--- NOTE | 2017-09-13 11:09 | NUR ---
PT IN RECLINER. PT'S AT SIDE, SITTING ON COUCH. AWAITING CARE CONFERENCE TO BEGIN.
--- NOTE | 2017-09-13 11:10 | NUR ---
CARE CONFERENCE ATTENDEES: PATIENT, PT XIANG, PT DAUGHTER IN LAW DOMONIQUE STAFF: DR COLON, MYSELF CASE MANAGEMENT, KB RT, ROMMEL RN EFFERVESCENT SALTS COMPOUNDER, SALEEM RICH, ZULMA ALMONTE RN, NOHEMY TRIMBLE RN, BRIE WELSH NURS SERVICES. DISCUSSION WAS STARTED WITH A QUESTION ABOUT WHAT ARE THE GOAL, CONCERNS ETC THAT THE PT AND FAMILY HAVE FOR THE PT. XIANG STARTED OFF STATING THAT THEY REALLY WANT HER TO BE HOME, BUT REALISTICALLY THEY KNOW THEY DON'T HAVE ENOUGH HELP TO TAKE CARE OF HER AT HOME YET. THEY ARE ATTEMPTING TO GET HER CAREGIVERS HIRED AT HOME. SO THEY FEEL SHE NEEDS TO BE IN A FACILITY UNTIL THEY CAN GET THE CAREGIVERS LINED UP. FOR THE CONVENIENCE OF IT THEY WOULD LIKE TO STAY IN [place], THEY STATED THEY CHECKED WITH SEVERAL FACILITIES HERE--[facility], [facility], THEY FEEL THE RESIDENTS THERE HAVE TO BE MUCH MORE INDEPENDENT THAN SHE IS AT THIS TIME. THEY SUGGESTED [facility] THEIR CHOSE OF SNF. TOLD THEM I WOULD CHECK INTO IT FOR THEM. DISCUSSED WITH THE FAMILY AND PT THE DETAILS OF WHAT MEDICARE WILL PAY AND AGAIN THE EXPECTATIONS OF MEDICARE EITHER HERE OR ANOTHER SNF. PT NEEDS TO BE PROGRESSING. SHE HAS BEEN PROGRESSING SLOWLY BUT SURELY BUT SOME DAYS ARE MORE FRUSTATING THAN OTHER AND SOME DAYS SHE WORKS HARD SHE CAN. PT STATES IF MY LEG DIDN'T HURT THEN IT WOULD BE BETTER. FAMILY STATES THEY ARE GOING TO STOP BY DEPARTMENT OF HUMAN SERVICES, AGING AND PEOPLE WITH DISABLITIES THIS AFTERNOON TO SEE WHAT AND IF SHE QUALIFIES FOR ANY HELP FROM THEM. DENIED FURTHER QUESTIONS, I WILL GET IN TOUCH WITH [facility] AND LET THEM KNOW WHAT I FIND OUT.
--- NOTE | 2017-09-13 11:31 | NUR ---
CARE CONFERENCE IN PROGRESS. DISCUSSING PLAN FOR FUTURE CARE FOR PT. SALEEM, PHARMACIST, ULISSES, MED/SURG BEVERAGE DISTILLER, XIANG, PT'S , DOMONIQUE, PT'S GRANDDAUGHTER, THIS RN, NANCY, PHYSICAL THERAPIST, KB, RT, BAN, PILE DRIVER OPERATOR BARGE MOUNTED, DR. COLON, THIS RN, AND BRIE PUTNAM PRESENT. PT STATED THAT HER PREFERENCE IS TO GO HOME. PT'S FAMILY INDICATES THAT THEY DO NOT YET HAVE CAREGIVERS AND/OR FAMILY AVAILABLE FOR 24/7 CARE AT HOME. DISCUSSED OPTIONS FOR PLACEMENT UNTIL CAREGIVERS ARE LINED UP. PT'S GRANDDAUGHTER AND STATED THAT THEY FEEL [facility] IS THE BEST PLACE FOR PT TO BE AT UNTIL THIS IS LINED UP. PT STATED "OK, LETS JUST GET THIS OVER WITH". INDICATED THAT SHE IS WILLING TO GO TO [facility] UNTIL CAREGIVERS ARE ARRANGED FOR HOME, AND SHE IS CLEARED TO GO HOME. ZULMA Perrin RN, DIRECTOR OF CASE MANAGEMENT AND HOME HEALTH AND HOSPICE ALSO PRESENT FOR MEETING.
--- NOTE | 2017-09-13 12:43 | NUR ---
PT UP IN RECLINER. C/O 9/10 PAIN TO LEFT HIP AND KNEE. GAVE TYLENOL 3 1 TAB PO PRN.
--- NOTE | 2017-09-13 12:50 | NUR ---
CONTACT INFO DOMONIQUE HU, DAUGHTER IN LAW: [phone]
--- NOTE | 2017-09-13 12:50 | NUR ---
PATIENT SITTING UP IN CHAIR WITH FEET ELEVATED. CALL BUTTON IN REACH. NO OTHER NEEDS AT THIS TIME.
--- NOTE | 2017-09-13 13:34 | NUR ---
FAXED CHART NOTES INCLUDING FACESHEET, H AND P, PROG NOTES, PT EVAL AND NOTES, IMAGING TO [facility] AFTER TALKING WITH TR.
--- NOTE | 2017-09-13 13:44 | NUR ---
PT SITTING IN CHAIR, SAID SHE DIDNOT WANT TO VISIT AT THIS TIME. WANTED TO REST. WILL CHECK BACK AGAIN
--- NOTE | 2017-09-13 14:05 | NUR ---
PT SITTING UP IN RECLINER. DENIED NEEDS.
--- NOTE | 2017-09-13 14:45 | NUR ---
PATIENT RESTING IN CHAIR WITH FEET ELEVATED. EYES CLOSED. CALL BUTTON IN REACH.
[2017-09-13] MEDS ORDERED: TOPROL XL50 MG PO (15:25)
[2017-09-13] MEDS ORDERED: MAPAP325 MG PO (15:26)
[2017-09-13] MEDS ORDERED: KLOR-CON 1010 MEQ PO (15:27)
[2017-09-13] MEDS ORDERED: DEMADEX20 MG PO (15:27)
[2017-09-13] MEDS ORDERED: ACETAMINOPHEN-1 EAC1 PO (15:30)
--- NOTE | 2017-09-13 15:49 | NUR ---
PT UP IN HALLWAY AMBULATING WITH FWW WITH NANCY PHYSICAL THERAPIST. PT APPEARS TO BE TOLERATING WELL.
--- NOTE | 2017-09-13 17:36 | NUR ---
PT UP WITH 1 PERSON ASSIST. WORKED WITH PHYSICAL AND OCCUPATIONAL THERAPY. PT ALERT, ORIENTED X 3. TOOK TYLENOL 3, WELL ACETAMINOPHEN FOR PAIN TO LEFT HIP AND KNEE. ALSO USED HEAT PACKS TO LEFT HIP AND KNEE FOR PAIN RELIEF. PT USED FWW WHEN UP. APETITE POOR TO FAIR, PT DRANK ENSURES WITH MEALS. ENCOURAGED PO INTAKE. ON 2L O2 VIA NC, IS HER BASELINE. LUNGS CTA, OXYGEN SATURATION LEVEL GREATER THAN 90%. HR IRREGULAR BUT RATE CONTROLLED. HAS ROMERO CATHETER IN PLACE, CLEAR YELLOW URINE OUT. PT HAD BM X 2 THIS SHIFT.
--- NOTE | 2017-09-13 17:36 | NUR ---
PT UP IN RECLINER, RESTING QUIETLY. NO S/S DISTRESS OR DISCOMFORT. DENIED NEEDS.
--- NOTE | 2017-09-13 17:57 | NUR ---
PT SITTING UP IN RECLINER. REPORTED THAT SHE DID NOT EAT MUCH OF HER DINNER, BUT DID DRINK 100% OF AN ENSURE, [place]BERRY. DENIED NEEDS AT THIS TIME.
--- NOTE | 2017-09-13 18:12 | NUR ---
PATIENT SITTING UP IN CHAIR WITH IN ROOM. NO NEEDS AT THIS TIME.
--- NOTE | 2017-09-13 18:14 | NUR ---
GAVE PATIENT A ENSURE TO DRINK.
--- NOTE | 2017-09-13 18:38 | NUR ---
PT UP TO BATHROOM WITH FWW WITH 1 PERSON ASSIST. VOIDED, AND HAD MEDIUM BM. PT THEN TO BED WITH 1 PERSON ASSIST. PT RATED PAIN 10/10. GAVE TYLENOL 3, 1 TAB PO PRN. PT ASSISTED TO POSITION IN BED FOR COMFORT.
--- NOTE | 2017-09-13 19:15 | NUR ---
BEDSIDE REPORT RECEIVED FROM OFFGOING RN. PT LYING IN BED WATCHING TV. DENIES NEEDS AT THIS TIME. CALL LIGHT WITHIN REACH.
--- NOTE | 2017-09-13 20:01 | NUR ---
PT LYING IN BED RECEIVING NEB TX. RATES PAIN 4/10 TO L HIP, STATES THAT THIS IS TOLERABLE. PT ASSESSMENT COMPLETE. PT DENIES NEEDS AT THIS TIME. REQUESTS THAT LIGHTS BE TURNED OUT. CALL LIGHT WITHIN PT REACH.
--- NOTE | 2017-09-13 23:45 | NUR ---
PT RESTING IN BED WITH EYES CLOSED. WAKES WHEN EYEGLASS CUTTER AT DOORWAY. DENIES NEEDS AT THIS TIME. CALL LIGHT WITHIN REACH.
--- NOTE | 2017-09-14 01:51 | NUR ---
PT RESTING IN BED WITH EYES CLOSED. RESPIRATIONS EVEN AND UNLABORED. PT APPEARS TO BE SLEEPING. CALL LIGHT WITHIN REACH.
--- NOTE | 2017-09-14 03:47 | NUR ---
PT USES CALL LIGHT, REQUESTS ICE WATER BE REFILLED. PT STATES THAT SHE FEELS THOUGH SHE HAS NOT BEEN SLEEPING. REASSURED PT THAT SHE HAS BEEN ASLEEP WHEN SOFTWARE ANALYST LOOKS IN ROOM. PT REPORTS THAT PAIN IS WELL CONTROLLED. ROOM TEMPERATURE DECREASED. PT STATES SHE WILL TRY TO GET SOME SLEEP.
--- NOTE | 2017-09-14 04:31 | NUR ---
PT UTILIZES CALL LIGHT, REQUESTS PAIN MEDICATION. PT RATING PAIN /10. PRN TYLENOL 3 ADMINISTERED. PT DENIES OTHER NEEDS AT THIS TIME. CALL LIGHT WITHIN REACH.
--- NOTE | 2017-09-14 05:07 | NUR ---
PAIN X 1 THIS SHIFT, TYLENOL 3 X 1. O2 @ 2LPM. HEATHER SANTOS. SBA WITH FWW. DAILY WEIGHT. NO IV ACCESS. SUPPLEMENT MEALS WITH ENSURE.
--- NOTE | 2017-09-14 07:04 | NUR ---
BEDSIDE REPORT RECIEVED FROM JEWELL DAWKINS. PT AWAKE, SITTING UP IN BED. SON AT BEDSIDE. PT REMAINS ON 2L O2 VIA NC, IS HER BASELINE. PT DENIED NEEDS AT THIS TIME.
--- NOTE | 2017-09-14 08:22 | NUR ---
PT UP TO BATHROOM, HAD LARGE LOOSE BM. PT THEN TO RECLINER WITH FWW WITH 1 PERSON ASSIST. PT SITTING UP IN RECLINER, LEGS ELEVATED, EATING BREAKFAST AND TALKING TO GRANDDAUGHTER. TOOK AM MEDICATIONS. DRANK MIRILAX MIXED WITH AN APPLE ENSURE.
--- NOTE | 2017-09-14 08:37 | NUR ---
PT REPORTED 7/10 PAIN TO LEFT HIP AND KNEE. GAVE ACETAMINOPHEN 325 MG PO PRN. ALSO APPLIED HEAT PACKS TO LEFT HIP AND KNEE.
--- NOTE | 2017-09-14 09:00 | NUR ---
PATIENT UP TO BATHROOM.
--- NOTE | 2017-09-14 09:07 | NUR ---
PT SITTING UP IN RECLINER. PERSONAL SUPPLIES AND CALL BUTTON IN REACH. PT DENIED NEEDS. REMAINS ON 2L O2 VIA NC.
--- NOTE | 2017-09-14 09:24 | NUR ---
PATIENT SITTING UP IN CHAIR. ORAL CARE DONE. HANDS AND FACE WASHED. PATIENT STATES SHE'S REALLY TIERED. FRESH ICE WATER GIVEN. CALL BUTTON IN REACH.
--- NOTE | 2017-09-14 10:04 | NUR ---
PT SITTING UP IN RECLINER, RESTING QUIETLY WITH EYES CLOSED. NO S/S DISTRESS OR DISCOMFORT NOTED. PERSONAL SUPPLIES AND CALL BUTTON IN REACH.
--- NOTE | 2017-09-14 10:41 | NUR ---
PT IS NOW IN BED, IS SLEEPING SOUNDLY WITH NO S/S DISTRESS OR DISCOMFORT. PERSONAL SUPPLIES AND CALL BUTTON IN REACH.
--- NOTE | 2017-09-14 12:00 | NUR ---
FAXED ORDERS AND PASRR TO [facility]. RECIEVED FAX CONFIRMATION.
--- NOTE | 2017-09-14 13:00 | NUR ---
PT GETTING DRESSED WITH ASSISTANCE FROM STUDENT NURSE, FABRICIO. REMAINS ON 2L O2 VIA NC. ROMERO CATHETER IN PLACE, DRAINING CLEAR YELLOW URINE.
--- NOTE | 2017-09-14 13:07 | NUR ---
PT UP TO BATHROOM, THEN BACK TO BED, SITTING UP AT EDGE OF BED, STUDENT NURSE ASSISTING PT IN GETTING DRESSED. PT REPORTED 8/10 PAIN TO LEFT HIP AND KNEE. GAVE TYLENOL 3, 1 TAB PO PRN.
--- NOTE | 2017-09-14 13:54 | NUR ---
PT RESTING IN BED. AROUSED TO VERBAL STIMULI. DENIED NEEDS AT THIS TIME. DENIED PAIN. PERSONAL SUPPLIES AND CALL BUTTON IN REACH.
--- NOTE | 2017-09-14 14:35 | NUR ---
RECIEVED NOTIFICATION FROM [facility] THAT THE ORDERS WERE ACCEPTED. I CALLED XIANG PT AND HE SAID HE WOULD BE HERE IN A FEW MINUTES. LET MED SURG KNOW THAT PT WAS GOING TO [facility] SOON.
--- NOTE | 2017-09-14 15:17 | NUR ---
REPORT CALLED TO SUHA LIMA AT [facility]. QUESTIONS ASKED AND ANSWERED. JANIE VERBALIZED UNDERSTANDING.
--- NOTE | 2017-09-16 16:58 | NUR ---
Heart Failure follow up call #1- Attempted to call and speak to Tommy Gusman RN at [phone]. No answer first attempt. 2nd attempt on hold for 10 minutes. Will attempt again at later date. Purpose of call: to ensure medications obtained as ordered, low sodium diet understanding, daily weights being monitored, and follow up appointment made with PCP upon DC to home.
--- NOTE | 2017-09-21 17:02 | NUR ---
Heart Failure Follow Up Call #3- Spoke to farm general manager at [facility]. He states Mrs. Nails discharged from [facility] on 09/17/17 per her request. He states there were not any problems and patient had a safe DC plan. I called patient's home and spoke to Mr Nails. There is a home caregiver who took patient into PCP visit yesterday. He states her eating and strength has improved. Safety concerns with walking due to oxygen and de león cath tubing. Reports leg left remains swollen and painful to touch. He states she doesn't have any symptoms of shortness of breath, cough, or generalized edema. Encouraged them to read the folder/book patient was given in hospital. Welcomed to call me if they wanted more information.
== END 2017-09-14 15:00 | disposition home or self-care (01) | DRG 558 ==
LOC: MS 11:24
PROVIDERS: ADMIT Internal Medicine
PROC: 3E0234Z Introduction of Serum, Toxoid and Vaccine into Muscle, Percutaneous Approach (ICD-10-PCS; principal; 2017-09-05)
DX: M62.50 Muscle wasting and atrophy, not elsewhere classified, unspecified site (principal); I50.32 Chronic diastolic (congestive) heart failure; J96.11 Chronic respiratory failure with hypoxia; J96.12 Chronic respiratory failure with hypercapnia; I27.20 Pulmonary hypertension, unspecified; I11.0 Hypertensive heart disease with heart failure; I08.2 Rheumatic disorders of both aortic and tricuspid valves; M79.81 Nontraumatic hematoma of soft tissue; Z23 Encounter for immunization; S01.01XA Laceration without foreign body of scalp, initial encounter; W06.XXXA Fall from bed, initial encounter; Y92.230 Patient room in hospital as the place of occurrence of the external cause; I48.2 Chronic atrial fibrillation; J44.9 Chronic obstructive pulmonary disease, unspecified; R33.8 Other retention of urine; K21.9 Gastro-esophageal reflux disease without esophagitis; I50.84 End stage heart failure; E03.9 Hypothyroidism, unspecified; Z79.82 Long term (current) use of aspirin; M24.478 Recurrent dislocation, left toe(s); M79.662 Pain in left lower leg
CPT/HCPCS: 51798; 70450; 72125; 72128; 72131; 72170; 73080; 73552; 73590; 73630; 90662; 94640; 94760; 97110; 97116; 97162; 97165; 97530; 97535; G0008